=== PATIENT | male | born 1990 | race Caucasian/White ===

== ENCOUNTER 2019-07-25 22:20 | Emergency (ER) | payer MEDICAID, OTHER ==
[~2019-07-25] VITALS: Ht 190 cm; Wt 94.3 kg
[2019-07-25 22:33] VITALS: BP 135/80
--- NOTE | 2019-07-25 22:39 | ED EENT ---
History of Present Illness General Chief Complaint: Ear Problems Stated Complaint: NAUSEA/VOMITTING History of Present Illness Date Seen by Provider: Jul 25, 2019 Time Seen by Provider: 22:37 Initial Comments This patient presents to the emergency department is 29-year-old male complaining of respiratory type symptoms aren't illness type issues. Body aches. Patient states been going on for about 24 hours. Will do medical evaluation treatment is needed. Patient states low-grade fever. A lot of nasal congestion. Right ear pain. Timing/Duration: gradual Prearrival Treatment: over the counter meds Modifying Factors: Worse With Activity, Worse With Albuterol Inhaler, Worse With Albuterol Nebulizer, Worse With Antibiotics, Worse With Coughing, Worse With Lying Down, Worse With Oxygen, Worse With Rest, Worse With Other Associated Symptoms: No denies symptoms, No change in hearing, No cough, No drooling, No ear drainage, No facial pain/swelling, No fever; malaise, nasal congestion/drainage; No poor fluid intake, No poor solids intake, No sinus infection, No sore throat, No tooth pain, No voice change, No other Allergies and Home Medications Allergies Coded Allergies: No Known Drug Allergies (Unverified , 07/25/19) Patient Home Medication List Home Medication List Reviewed: Yes Review of Systems Review of Systems Constitutional: no symptoms reported, see HPI, fever, malaise Eyes: No Symptoms Reported, See HPI Ears: Denies No Symptoms Reported, Denies See HPI, Denies Dizziness; Pain; Denies Tinnitus, Denies Bloody Discharge, Denies Clear Discharge, Denies Purulent Discharge, Denies Serosanguinous Discharge, Denies Previous Injury, Denies Other Nose: denies no symptoms reported, denies see HPI, denies clots; congestion; denies epistaxis, denies pain, denies bloody discharge; clear discharge; denies purulent discharge, denies serosanguinous discharge, denies previous injury, denies other Mouth: denies no symptoms reported; see HPI; denies clots, denies loose teeth, denies pain, denies swelling, denies bloody discharge, denies clear discharge, denies purulent discharge, denies serosanguinous discharge, denies previous injury, denies other Throat: no symptoms reported, see HPI; denies pain, denies swelling, denies discharge, denies neck stiffness, denies hoarse, denies aphonia, denies muffled, denies painful swallowing, denies difficulty with fluids, denies previous injury, denies other Respiratory: No no symptoms reported, No see HPI; cough; No dyspnea on exertion, No hemoptysis, No orthopnea, No phlegm, No short of breath, No stridor, No wheezing, No other Cardiovascular: No no symptoms reported, No see HPI, No chest pain, No edema, No Hx of Intervention, No palpitations, No syncope, No vascular heart diseas, No other Gastrointestinal: No RUQ, No LUQ, No RLQ, No LLQ, No no symptoms reported, No see HPI, No abdominal pain, No constipation, No diarrhea, No dysphagia, No hematemesis, No heartburn, No jaundice, No loss of appetite, No melena, No nausea, No vomiting, No other Musculoskeletal: No no symptoms reported, No see HPI, No back pain, No gout, No joint pain, No joint swelling, No muscle pain, No muscle stiffness, No muscle cramps, No muscle twitching, No muscle weakness, No neck pain, No other Past Hiywmid-Juiasq-Ombnlg Hx Patient Social History Alcohol Use: Denies Use Recreational Drug Use: No Smoking Status: Current Everyday Smoker Type Used: Electronic/Vapor 2nd Hand Smoke Exposure: No Recent Foreign Travel: No Contact w/Someone Who Travel: No Recent Hopitalizations: No Physical Abuse: No Sexual Abuse: No Mistreated: No Fear: No Seasonal Allergies Seasonal Allergies: No Past Medical History Surgeries: Yes Ear Surgery Respiratory: No Cardiac: No Neurological: No Genitourinary: No Gastrointestinal: No Musculoskeletal: No Endocrine: No HEENT: No Cancer: No Psychosocial: No Integumentary: No Blood Disorders: No Physical Exam Vital Signs Vital Signs - First Documented 07/25/19 22:33 Temp 37.5 Pulse 84 Resp 16 B/P (MAP) 135/80 (98) Pulse Ox 100 O2 Delivery Room Air Height, Weight, BMI Height: '" Weight: lbs. oz. kg; BMI Method: General Appearance: WD/WN, no apparent distress, mild distress, moderate distress, severe distress, cachetic Eyes: right eye normal inspection, right eye PERRL, right eye EOMI, right eye abnormal EOM; bilateral eye normal inspection, bilateral eye PERRL, bilateral eye EOMI, bilateral eye abnormal EOM, bilateral eye abnormal pupil, bilateral eye A-V nicking, bilateral eye conjunctival hemorrhage, bilateral eye conjunctival inflammation Ears: bilateral ear auricle normal, bilateral ear canal normal, bilateral ear TM normal Nose: normal inspection; No active bleeding, No discharge, No dried blood, No foreign body, No sinus tenderness, No other Mouth/Throat: normal mouth inspection, pharynx normal, dental tenderness, excessive drooling, foreign body, mandibular swelling; No maxillary swelling, No pharynx swelling, No pharynx tenderness, No tongue swollen, No tonsillar exudate, No tonsillar swelling, No trismus, No uvula swelling, No voice changes, No other Cardiovascular: normal peripheral pulses, regular rate, rhythm, no edema, no gallop, no JVD, no murmur Respiratory: chest non-tender, lungs clear, normal breath sounds, no respiratory distress, no accessory muscle use Gastrointestinal: normal bowel sounds, non tender, soft, no organomegaly, no pulsatile mass, tenderness, spleenomegaly Skin: normal color, warm/dry Progress/Results/Core Measures Results/Orders Micro Results Microbiology 07/25/19 Influenza Types A,B Antigen (JOSE) - Final, Complete My Orders Orders - RUFUS KILLIAN MD Influenza A And B Antigens (07/25/19 22:31) Vital Signs/I&O 07/25/19 22:33 Temp 37.5 Pulse 84 Resp 16 B/P (MAP) 135/80 (98) Pulse Ox 100 O2 Delivery Room Air Departure Impression Primary Impression: Upper respiratory infection Disposition: 01 HOME, SELF-CARE Condition: Stable Departure-Patient Inst. Referrals: NO,LOCAL PHYSICIAN (PCP/Family) Primary Care Physician Patient Instructions: Cough, Runny Nose, and the Common Cold (DC) Add. Discharge Instructions: Encourage by mouth fluids, cool mist me to find the bedroom at night, area without encountering antihistamines as needed. Finish all medications as written. Tylenol Motrin as needed for fever or pain. All discharge instructions reviewed with patient and/or family. Voiced understanding. Scripts Azithromycin (Zithromax) 250 Mg Tablet 250 MG PO UD, #6 TAB TAKE 2 TABLETS TODAY, THEN TAKE 1 TABLET DAILY FOR 4 MORE DAYS Prov: RUFUS KILLIAN MD 07/25/19 RUFUS KILLIAN MD Jul 25, 2019 22:39
[2019-07-25] MEDS ORDERED: AZIT250T PO (23:02)
--- OUTSIDE RECORDS SUMMARY | 2019-07-28 11:12 | XMS REPORT | Continuity of Care Document ---
Author Organization Unknown Address Unknown Phone Unavailable Allergies Active Description Code Type Severity Reaction Onset Reported/Identified Relationship to Patient Clinical Status Yes No Known Drug Allergies [id number] Drug Allergy Unknown N/A 07/25/2019 Medications There is no data. Problems There is no data. Procedures There is no data. Results Test Result Range Influenza virus A and B antigen detectio n - 07/25/19 22:30 FLU RESULT NEGATIVE FOR INFLUENZA A AND B ANTIGENS BY IA NRG Encounters ACCT No. Visit Date/Time Discharge Status Pt. Type Provider Facility Loc./Unit Complaint [id number] 06/16/2019 15:10:00 06/16/2019 23:59: 59 CLS Outpatient JUDITH VERDUGO [facility] [id number] 07/25/2019 22:24:00 020 23:06:00 DIS Emergency MARIA D GUNTER, RUFUS Palma [facility] ER FS NAUSEA/VOMITTING
== END 2019-07-25 23:06 | disposition home or self-care (01) ==
LOC: ER FS 22:24
DX: J06.9 Acute upper respiratory infection, unspecified (principal); F17.290 Nicotine dependence, other tobacco product, uncomplicated
CPT/HCPCS: 87804

== ENCOUNTER 2019-10-04 22:32 | Emergency (ER) | payer MEDICAID ==
[~2019-10-04] VITALS: Ht 190.5 cm; Wt 99.8 kg
[~2019-10-04 22:32] MED LIST: AZIT250T PO
[2019-10-04] MEDS ORDERED: ANTACID SUSP 30 ML UDC (MYLANTA) PO ONE (23:00)
[2019-10-04] MEDS ORDERED: KETOROLAC 30 MG/ML VIAL IVP ONE (23:00)
[2019-10-04] MEDS ORDERED: ACETAMINOPHEN 500 MG TAB (TYLENOL) PO ONE (23:00)
[2019-10-04] MEDS ORDERED: ASPIRIN 325 MG (5 GR) TABLET PO ONE (23:00)
[2019-10-04] MEDS ORDERED: LIDOCAINE 2% VISCOUS 15 ML UDC PO ONE (23:00)
--- NOTE | 2019-10-04 23:05 | ED Chest Pain ---
General Chief Complaint: Chest Pain Stated Complaint: CHEST PAIN,SOA Nursing Triage Note: PT AMBULATE TO ROOM FS01 WITH C/O CHEST PAIN AND SOB STARTING APPROX X1 MONTH AGO. PT STATES PAIN IS WORSE WHEN HE MOVES AND STRETCHES. PT REPORTS PAIN IS INTERMITTANT. PT STATES PAIN IS WORSE WHEN HE WAKES UP. PT REPORTS DIARRHEA AFTER EATING X1 MONTH. Nursing Sepsis Screen: No Definite Risk History of Present Illness Date Seen by Provider: October 04, 2019 Time Seen by Provider: 22:50 Initial Comments The patient is a 29-year-old male smoker who presents for evaluation of 1 month of intermittent sharp focal midsternal pleuritic chest discomfort. Discomfort does not radiate. It is worse with deep breathing as well as with movement and stretching of the torso. It is nonexertional. It seems to come on when the patient wakes up from sleep and get better over the course of his work day. He states he has this pain every few days at random, and has had it for the last month intermittently. Severity about 8 out of 10 at present; patient states that he woke up about 4 hours ago with the discomfort and states that it did not get better on its own as it typically has and so he decided to come in for evaluation. Associated diarrhea; patient states that over the last month, the interval during which he has had this chest discomfort, he has had a loose bowel movement most every time he eats. About 3 episodes per day. No associated fevers, vomiting, hematemesis, hematochezia, melena, upper respiratory congestion/rhinorrhea, cough, shortness of breath, dyspnea with exertion, diaphoresis, flank pain, back pain, abdominal pain of any kind, dysuria or hematuria, recent unusual foods, unusual travel, sick contacts with similar symptoms, recent antibiotic use. Patient denies recent immobilization, hemoptysis, known cancer history, recent surgery, personal or family history of venous thromboembolic disease, estrogen or steroid use. Patient is alert and pleasantly and appropriately interactive and in no acute distress upon initial assessment here in the emergency department. Vital signs are generally appropriate here. Allergies and Home Medications Allergies Coded Allergies: No Known Drug Allergies (Unverified , 07/25/19) Home Medications Azithromycin 250 Mg Tablet, 250 MG PO UD TAKE 2 TABLETS TODAY, THEN TAKE 1 TABLET DAILY FOR 4 MORE DAYS Prescribed by: RUFUS KILLIAN on 3/82301 Patient Home Medication List Home Medication List Reviewed: Yes Review of Systems Review of Systems Constitutional: no symptoms reported All Other Systems Reviewed Negative Unless Noted: Yes (Negative excepted noted.) Past Icrrmck-Bqnvro-Igyujm Hx Past Med/Social Hx: Reviewed Nursing Past Med/Soc Hx Patient Social History Alcohol Use: Occasionally Uses Alcohol Beverage of Choice: Beer Recreational Drug Use: No Smoking Status: Current Everyday Smoker Type Used: Cigars, Electronic/Vapor 2nd Hand Smoke Exposure: No Recent Foreign Travel: No Contact w/Someone Who Travel: No Recent Infectious Disease Expo: No Recent Hopitalizations: No Physical Abuse: No Sexual Abuse: No Mistreated: No Fear: No Seasonal Allergies Seasonal Allergies: No Past Medical History Surgeries: Yes Ear Surgery Respiratory: No Cardiac: No Neurological: No Genitourinary: No Gastrointestinal: No Musculoskeletal: No Endocrine: No HEENT: No Cancer: No Psychosocial: No Integumentary: No Blood Disorders: No Family Medical History Reviewed Nursing Family Hx Physical Exam Vital Signs Vital Signs - First Documented 10/04/19 22:39 Temp 37.1 Pulse 81 Resp 18 B/P (MAP) 146/84 (104) O2 Delivery Room Air Capillary Refill : Less Than 3 Seconds Height, Weight, BMI Height: '" Weight: lbs. oz. kg; 27.00 BMI Method: General Appearance: No Apparent Distress Other comments This is a younger male appearing nontoxic and in no acute distress. Head is normocephalic and atraumatic. Neck is supple and nontender. Oropharynx is moist. Lungs are clear to auscultation at all stations. There is normal S1 and S2 without rubs or gallops and capillary refill is appropriate, less than 2 seconds globally. There are no murmurs appreciated. Abdomen is soft, nontender and nondistended without pulsatile mass. Skin is warm and dry without cyanosis, clubbing or any peripheral edema. Psychiatrically, the patient demonstrates appropriate mood and affect and is alert. From a musculoskeletal standpoint, evaluation of the bilateral upper and lower extremities is unremarkable for any evidence of edema. 2+ pulses and capillary refill less than 2 seconds are noted to all 4 extremities and there is no calf tenderness or swelling noted bilaterally. Progress/Results/Core Measures Results/Orders Lab Results Laboratory Tests Test 10/04/19 22:55 Range/Units White Blood Count 7.9 4.3-11.0 10^3/uL Red Blood Count 4.75 4.35-5.85 10^6/uL Hemoglobin 14.3 13.3-17.7 G/DL Hematocrit 41 40-54 % Mean Corpuscular Volume 87 80-99 FL Mean Corpuscular Hemoglobin 30 25-34 PG Mean Corpuscular Hemoglobin Concent 35 32-36 G/DL Red Cell Distribution Width 12.8 10.0-14.5 % Platelet Count 308 130-400 10^3/uL Mean Platelet Volume 9.5 7.4-10.4 FL Neutrophils (%) (Auto) 57 42-75 % Lymphocytes (%) (Auto) 28 12-44 % Monocytes (%) (Auto) 9 0-12 % Eosinophils (%) (Auto) 5 0-10 % Basophils (%) (Auto) 0 0-10 % Neutrophils # (Auto) 4.5 1.8-7.8 X 10^3 Lymphocytes # (Auto) 2.2 1.0-4.0 X 10^3 Monocytes # (Auto) 0.7 0.0-1.0 X 10^3 Eosinophils # (Auto) 0.4 H 0.0-0.3 10^3/uL Basophils # (Auto) 0.0 0.0-0.1 10^3/uL Prothrombin Time 13.6 12.2-14.7 SEC INR Comment 1.0 0.8-1.4 Activated Partial Thromboplast Time 31 24-35 SEC D-Dimer 0.25 0.00-0.49 UG/ML Sodium Level 142 135-145 MMOL/L Potassium Level 3.9 3.6-5.0 MMOL/L Chloride Level 105 98-107 MMOL/L Carbon Dioxide Level 26 21-32 MMOL/L Anion Gap 11 5-14 MMOL/L Blood Urea Nitrogen 8 7-18 MG/DL Creatinine 1.00 0.60-1.30 MG/DL Estimat Glomerular Filtration Rate > 60 BUN/Creatinine Ratio 8 Glucose Level 145 H 70-105 MG/DL Calcium Level 9.4 8.5-10.1 MG/DL Corrected Calcium 9.2 8.5-10.1 MG/DL Total Bilirubin 0.3 0.1-1.0 MG/DL Aspartate Amino Transf (AST/SGOT) 23 5-34 U/L Alanine Aminotransferase (ALT/SGPT) 29 0-55 U/L Alkaline Phosphatase 72 40-136 U/L Troponin I < 0.30 <0.30 NG/ML Pro-B-Type Natriuretic Peptide 8.4 <75.0 PG/ML Total Protein 7.4 6.4-8.2 GM/DL Albumin 4.2 3.2-4.5 GM/DL My Orders Orders - LISANDRA ALVARADO MD Cbc With Automated Diff (10/04/19 22:54) Comprehensive Metabolic Panel (10/04/19 22:54) Troponin I Fs (10/04/19 22:54) Ekg Tracing (10/04/19 22:54) Chest Pa/Lat (2 View) (10/04/19:54) Protime With Inr (10/04/19:54) Partial Thromboplastin Time (10/04/19 22:54) Probnp Fs (10/04/19:54) Fibrin Degradation Products (10/04/19 22:54) Aspirin Tablet (Aspirin Tablet) (10/04/19 23:00) Acetaminophen Tablet (Tylenol Tablet) (10/04/19 23:00) Ketorolac Injection (Toradol Injection) (10/04/19 23:00) Lidocaine 2% Viscous 15 Ml (Xylocaine Vi (10/04/19 23:00) Antacid Suspension (Mylanta Suspension (10/04/19 23:00) Ed Iv/Invasive Line Start (10/04/19 22:54) Famotidine Tablet (Pepcid Tablet) (10/04/19 23:15) Medications Given in ED Current Medications Medications Dose Ordered Sig/Kelly Route Start Time Stop Time Status Last Admin Dose Admin Acetaminophen 1,000 mg ONCE ONCE PO 10/04/19 23:00 10/04/19 23:01 DC 10/04/19 23:08 1,000 MG Al Hydrox/Mg Hydrox/Simethicone 30 ml ONCE ONCE PO 10/04/19 23:00 10/04/19 23:01 DC 10/04/19 23:08 30 ML Aspirin 325 mg ONCE ONCE PO 10/04/19 23:00 10/04/19 23:01 DC 10/04/19 23:08 325 MG Famotidine 20 mg ONCE ONCE PO 10/04/19 23:15 10/04/19 23:16 DC 10/04/19 23:15 20 MG Ketorolac Tromethamine 30 mg ONCE ONCE IVP 10/04/19 23:00 10/04/19 23:01 DC 10/04/19 23:08 30 MG Lidocaine HCl 15 ml ONCE ONCE PO 10/04/19 23:00 10/04/19 23:01 DC 10/04/19 23:08 15 ML Vital Signs/I&O 10/04/19 10/04/19 22:39 22:51 Temp 37.1 Pulse 81 Resp 18 B/P (MAP) 146/84 (104) O2 Delivery Room Air Room Air Blood Pressure Mean: 104 Progress Progress Note : Time: 23:08 Progress Note 29-year-old male who presents with intermittent pleuritic chest discomfort times one month midsternally in association with mild watery diarrhea. The present episode has been ongoing for >4 hours. Vital signs and clinical examination are reassuring. HEART score 2, low risk for MACE. Wells low risk for PE. We will check labs and EKG and chest x-ray and will give medication for discomfort as per flowsheet as well as an aspirin and will then reevaluate. If workup is reassuring, anticipate discharge home with referral for close follow-up with [facility] for primary care and to cardiology for close follow-up of his 1 month of atypical chest discomfort. He understands and agrees with this plan of care. 2350: Workup is as noted, unremarkable and reassuring. Michael feels a great deal better on reassessment after medication here in the emergency department. Chest pain is much improved. He does have mildly elevated blood glucose without other findings of concern by laboratory evaluation. Unclear chronicity on this but will certainly need to be followed up with the primary care physician. Will refer patient to [facility] for close follow-up and I have instructed him to call tomorrow for a close follow-up appointment. We will also refer him to the cardiology clinic for further evaluation of his 1 month of atypical chest discomfort, though favor other etiologies for his symptoms at this time. We'll prescribe a course of anti-inflammatory as well as antiacid medication and will have the patient follow up closely as noted above. He understands that if he feels worse instead of better or develops other new symptoms of concern that he will need to return to the emergency department immediately for reevaluation. All questions are answered. EKG : Comment Sinus rhythm, rate 74, no acute ST elevation or depression, right bundle branch block, OR 149, QRS 123, QTC 467, EP interpretation. Nonischemic tracing. Diagnostic Imaging Plain Films/CT/US/NM/MRI: chest Comments No acute cardiopulmonary process, EP interp Counseling-Asymptomatic: 3-10 minutes Departure Impression Primary Impression: Other chest pain Disposition: HOME, SELF-CARE Condition: Improved Departure-Patient Inst. Referrals: MAYITO JC MD NO,LOCAL PHYSICIAN (PCP) Primary Care Physician CHANTELLE GEORGE MD Patient Instructions: Chest Pain Add. Discharge Instructions: Please follow-up as discussed by calling tomorrow for an initial appointment with Dr. George, one of our [facility] primary care physicians. Please let the production scheduler know that you were in the emergency department last evening and that the emergency physician would like to get you followed up very closely, ideally within the next 2-4 days. Please also call Dr. Jc's office in [place] for a cardiology appointment; let the production scheduler know that you need an ER followup appointment for chest pain, ideally within the next 72 hours. Numbers have been provided for both clinics. Please call in the morning. Take the medication as prescribed for your symptoms. Return to the emergency department right away with recurrent or worsening symptoms or with any other new symptoms of concern. Your blood sugar was a little elevated today here in the ER. Make sure to have that rechecked by your primary doctor at your upcoming appointment. Scripts Famotidine (Pepcid) 20 Mg Tablet 20 MG PO BID for 30 Days, #60 TAB Prov: LISANDRA ALVARADO MD 10/05/19 Ibuprofen (Ibuprofen) 800 Mg Tablet 800 MG PO Q8H PRN for PAIN, #30 TAB 0 Refills Prov: LISANDRA ALVARADO MD 10/05/19 Work/School Note: Work Release Form Date Seen in the Emergency Department: October 05, 2019 Return to Work: October 06, 2019 Restrictions: No Restrictions LISANDRA ALVARADO MD October 04, 2019 23:05
[2019-10-04 23:09] LABS: HEMATOCRIT 41 % (40-54); HEMOGLOBIN 14.3 G/DL (13.3-17.7); MEAN CORPUSCULAR HEMOGLOBIN 30 PG (25-34); MEAN CORPUSCULAR VOLUME 87 FL (80-99); WHITE BLOOD COUNT 7.9 10^3/uL (4.3-11.0)
[2019-10-04 23:10] LABS: BASOPHILS % (AUTO) 0 % (0-10); EOSINOPHILS # (AUTO) 0.4 10^3/uL (0.0-0.3); EOSINOPHILS % (AUTO) 5 % (0-10); LYMPHOCYTES # (AUTO) 2.2 X 10^3 (1.0-4.0); LYMPHOCYTES % (AUTO) 28 % (12-44); MEAN CORPUSCULAR HGB CONC 35 G/DL (32-36); MEAN PLATELET VOLUME 9.5 FL (7.4-10.4); MONOCYTES # (AUTO) 0.7 X 10^3 (0.0-1.0); MONOCYTES % (AUTO) 9 % (0-12); NEUTROPHILS # (AUTO) 4.5 X 10^3 (1.8-7.8); NEUTROPHILS % (AUTO) 57 % (42-75); PLATELET COUNT 308 10^3/uL (130-400); RED CELL DISTRIBUTION WIDTH 12.8 % (10.0-14.5)
--- OUTSIDE RECORDS SUMMARY | 2019-10-04 23:10 | XMS REPORT | Continuity of Care Document ---
Author Organization Unknown Address Unknown Phone Unavailable Allergies Active Description Code Type Severity Reaction Onset Reported/Identified Relationship to Patient Clinical Status Yes No Known Drug Allergies [id number] Drug Allergy Unknown N/A 07/25/2019 Medications There is no data. Problems There is no data. Procedures There is no data. Results Test Result Range Influenza virus A and B antigen detectio n - 07/25/19 22:30 FLU RESULT NEGATIVE FOR INFLUENZA A AND B ANTIGENS BY IA NRG Encounters ACCT No. Visit Date/Time Discharge Status Pt. Type Provider Facility Loc./Unit Complaint [id number] 08/10/2019 07:50:00 08/10/2019 23:59: 59 CLS Outpatient JUDITH VERDUGO L[facility] [id number] 07/25/2019 22:24:00 020 23:06:00 DIS Emergency RUFUS KILLIAN MD Via [facility] ER FS NAUSEA/VOMITTING [id number] 10/04/2019 22:33:[address] Emergency LISANDRA ALVARADO MD Via [facility] ER FS CHEST PAIN,SOA
[2019-10-04] MEDS ORDERED: FAMOTIDINE 20 MG (PEPCID) TABLET PO ONE (23:15)
[2019-10-04 23:29] LABS: FIBRIN DEGRADATION PRODUCTS 0.25 UG/ML (0.00-0.49); PROTHROMBIN TIME PATIENT 13.6 SEC (12.2-14.7)
[2019-10-04 23:39] LABS: ALANINE AMINOTRANSFERASE 29 U/L (0-55); ALBUMIN 4.2 GM/DL (3.2-4.5); ALKALINE PHOSPHATASE 72 U/L (40-136); BILIRUBIN,TOTAL 0.3 MG/DL (0.1-1.0); BUN/CREATININE RATIO 8; CALCIUM 9.4 MG/DL (8.5-10.1); CARBON DIOXIDE 26 MMOL/L (21-32); CHLORIDE 105 MMOL/L (98-107); GFR ESTIMATED > 60; GLUCOSE 145 MG/DL (70-105); POTASSIUM 3.9 MMOL/L (3.6-5.0); SODIUM 142 MMOL/L (135-145); TOTAL PROTEIN 7.4 GM/DL (6.4-8.2)
[2019-10-05] MEDS ORDERED: IBUP-1780 PO (00:01)
[2019-10-05] MEDS ORDERED: FAMO-119 PO (00:01)
[2019-10-05 00:13] VITALS: BP 137/77
--- NOTE | 2019-10-05 05:58 | Diagnostic Imaging Report ---
EXAMINATION: Chest 2 view INDICATION: Chest pain and shortness of breath. COMPARISON: None available. FINDINGS: The lung volumes are normal. A small amount of opacities are seen in the left lung base. No focal consolidations. No large pleural effusion or pneumothorax is seen. The cardiomediastinal silhouette is normal in size and contour. No acute osseous abnormality is seen. IMPRESSION: 1. Small amount of patchy opacities in the left lung base, favored to represent atelectasis. No focal consolidation. Dictated by: Dictated on workstation # [id number]
[2019-10-06] MEDS ORDERED: BENZ100C18 PO (22:43)
== END 2019-10-05 00:13 | disposition home or self-care (01) ==
LOC: EDUNIT# 22:32 → ER FS 22:33
DX: R07.89 Other chest pain (principal); F17.290 Nicotine dependence, other tobacco product, uncomplicated
CPT/HCPCS: 36415; 71046; 80053; 83880; 84484; 85025; 85379; 85610; 85730; 93005; 96374

== ENCOUNTER 2019-10-06 22:21 | Emergency (ER) | payer MEDICAID ==
[~2019-10-06] VITALS: Ht 190.5 cm; Wt 104.5 kg
[~2019-10-06 22:21] MED LIST changes: +FAMO-119 PO; +IBUP-1780 PO
--- OUTSIDE RECORDS SUMMARY | 2019-10-06 22:27 | XMS REPORT | Continuity of Care Document ---
Author Organization Unknown Address Unknown Phone Unavailable Allergies Active Description Code Type Severity Reaction Onset Reported/Identified Relationship to Patient Clinical Status Yes No Known Drug Allergies [id number] Drug Allergy Unknown N/A 07/25/2019 Medications There is no data. Problems Date Dx Coded Attending Type Code Diagnosis Diagnosed By 07/25/2019 MARIA D GUNTER, RUFUS Palma Ot F17.290 NICOTINE DEPENDENCE, OTHER TOBACCO PRODU 07/25/2019 MARIA D GUNTER, RUFUS Palma Ot J06.9 ACUTE UPPER RESPIRATORY INFECTION, UNSPE 07/25/2019 RUFUS KILLIAN MD Ot R11.2 NAUSEA WITH VOMITING, UNSPECIFIED Procedures There is no data. Results Test Result Range Influenza virus A and B antigen detectio n - 07/25/19 22:30 FLU RESULT NEGATIVE FOR INFLUENZA A AND B ANTIGENS BY [facility] Complete blood count (CBC) with automate d white blood cell (WBC) differential - 10/04/19 22:55 Blood leukocytes automated count (number/volume) 7.9 10*3/uL 4.3-11.0 Blood erythrocytes automated count (number/volume) 4.75 10*6/uL 4.35-5.85 Venous blood hemoglobin measurement (mass/volume) 14.3 g/dL 13.3-17.7 Blood hematocrit (volume fraction) 41 % 40-54 Automated erythrocyte mean corpuscular volume 87 [ foz_us] 80-99 Automated erythrocyte mean corpuscular h emoglobin (mass per erythrocyte) 30 pg 25-34 Automated erythrocyte mean corpuscular h emoglobin concentration measurement (mass/volume) 35 g/dL 32-36 Automated erythrocyte distribution width ratio 12. 8 % 10.0- 14.5 Automated blood platelet count (count/volume) 308 10*3/uL 130-400 Automated blood platelet mean volume measurement 9.5 [foz_us] 7.4-10.4 Automated blood neutrophils/100 leukocytes 57 % 42-75 Automated blood lymphocytes/100 leukocytes 28 % 12-44 Blood monocytes/100 leukocytes 9 % 0-12 Automated blood eosinophils/100 leukocytes 5 % 0-10 Automated blood basophils/100 leukocytes 0 % 0-10 Blood neutrophils automated count (number/volume) 4.5 10*3 1.8-7.8 Blood lymphocytes automated count (number/volume) 2.2 10*3 1.0-4.0 Blood monocytes automated count (number/volume) 0. 7 10*3 0.0-1.0 Automated eosinophil count 0.4 10*3/uL 0 .0-0.3 Automated blood basophil count (count/volume) 0.0 10*3/uL 0.0-0.1 PT panel in platelet poor plasma by coag ulation assay - 10/04/19 22:55 Prothrombin time (PT) in platelet poor plasma by coagu lation assay 13.6 s 12.2-14.7 INR in platelet poor plasma or blood by coagulation as say 1.0 0.8-1.4 Activated partial thromboplastin time (a PTT) in platelet poor plasma bycoagulation assay - 10/04/19 22:55 Activated partial thromboplastin time (a PTT) in platelet poor plasma bycoagulation assay 31 s 24-35 Fibrin D-dimer FEU measurement in platel et poor plasma (mass/volume) - 10/04/19 22:55 Fibrin D-dimer FEU measurement in platelet poor plasma (mass/volume) 0.25 ug/mL 0.00-0.49 Comprehensive metabolic panel - 10/04/19 22:55 Serum or plasma sodium measurement (moles/volume) 142 mmol/L 135-145 Serum or plasma potassium measurement (moles/volume) 3.9 mmol/L 3.6-5.0 Serum or plasma chloride measurement (moles/volume) 105 mmol/L 98-107 Carbon dioxide 26 mmol/L 21-32 Serum or plasma anion gap determination (moles/volume) 11 mmol/L 5-14 Serum or plasma urea nitrogen measurement (mass/volume ) 8 mg/dL 7-18 Serum or plasma creatinine measurement (mass/volume) 1.00 mg/dL 0.60-1.30 Serum or plasma urea nitrogen/creatinine mass ratio 8 NRG Serum or plasma creatinine measurement w ith calculation of estimated glomerular filtration rate > NRG Serum or plasma glucose measurement (mass/volume) 145 mg/dL 70-105 Serum or plasma calcium measurement (mass/volume) 9.4 mg/dL 8.5-10.1 Serum or plasma total bilirubin measurement (mass/volu me) 0.3 mg/dL 0.1-1.0 Serum or plasma alkaline phosphatase jovanny surement (enzymatic activity/volume) 72 U/L 40-136 Serum or plasma aspartate aminotransfera se measurement (enzymatic activity/volume) 23 U/L 5-34 Serum or plasma alanine aminotransferase measurement (enzymatic activity/volume) 29 U/L 0-55 Serum or plasma protein measurement (mass/volume) 7.4 g/dL 6.4-8.2 Serum or plasma albumin measurement (mass/volume) 4.2 g/dL 3.2-4.5 CALCIUM CORRECTED 9.2 mg/dL 8.5-10.1 TROPONIN I FS - 10/04/19 22:55 TROPONIN I FS < 0.30 <0.30 PROBNP FS - 10/04/19 22:55 PROBNP FS 8.4 pg/mL <75.0 Encounters ACCT No. Visit Date/Time Discharge Status Pt. Type Provider Facility Loc./Unit Complaint [id number] 08/10/2019 07:50:00 08/10/2019 23:59: 59 CLS Outpatient LUC[facility]SDALE[facility] [id number] 10/04/2019 22:33:00 020 00:13:00 DIS Emergency LISANDRA ALVARADO MD [facility] ER FS CHEST PAIN,SOA [id number] 07/25/2019 22:24:00 020 23:06:00 DIS Emergency RUFUS KILLIAN MD [facility] ER FS NAUSEA/VOMITTING [id number] 10/06/2019 22:22:[address] Emergency RUFUS KILLIAN MD [facility] ER FS CHEST PAIN
[2019-10-06] MEDS ORDERED: BENZONATATE 100 MG (TESSALON) CAPSULE PO ONE (22:39)
--- NOTE | 2019-10-06 22:40 | NUR ---
SINUS RHYTHM ON THE MONITOR
[2019-10-06] MEDS ORDERED: BENZ100C18 PO (22:43)
--- NOTE | 2019-10-06 22:44 | ED Cardiac General ---
History of Present Illness General Chief Complaint: Chest Pain Stated Complaint: CHEST PAIN Source: patient, RN/MD, RN notes reviewed, old records Exam Limitations: no limitations History of Present Illness Date Seen by Provider: October 06, 2019 Time Seen by Provider: 22:25 Initial Comments This patient is a 29-year-old male presents to the emergency department complaining of chest tightness. And burning. Patient was seen 2 days ago in the emergency department for same and a negative evaluation for any cardiac standpoint was advised to follow with cardiology. Patient did get an appointment for 2 weeks now. Patient states still having the burning in his chest. On exam patient is clear breathing however the patient didn't describes that he is continual vaping and has been long-time smoking. States that he's been vaping today and had increasing tightness in his chest. Timing/Duration: 5-6 days Severity: mild Location: other Prior CP/Workup: non-cardiac Modifying Factors: worse with breathing Associated Systoms: Denies Symptoms Allergies and Home Medications Allergies Coded Allergies: No Known Drug Allergies (Unverified , 07/25/19) Home Medications Azithromycin 250 Mg Tablet, 250 MG PO UD TAKE 2 TABLETS TODAY, THEN TAKE 1 TABLET DAILY FOR 4 MORE DAYS Prescribed by: RUFUS KILLIAN on 07/25/19 230 Famotidine 20 Mg Tablet, 20 MG PO BID Prescribed by: LISANDRA ALVARADO on 10/05/19 0001 Ibuprofen 800 Mg Tablet, 800 MG PO Q8H PRN for PAIN Prescribed by: LISANDRA ALVARADO on 10/05/19 0001 Patient Home Medication List Home Medication List Reviewed: Yes Review of Systems Review of Systems Constitutional: no symptoms reported EENTM: No No Symptoms Reported, No See HPI, No Blurred Vision, No Double Vision, No Eye Pain, No Eye Tearing, No Ear Drainage, No Ear Pain, No Mouth Pain, No Mouth Swelling, No Nose Congestion, No Nose Pain, No Throat Pain, No Throat Swelling, No Other Respiratory: Denies No Symptoms Reported; See HPI; Denies Cough, Denies Orthopnea, Denies Shortness of Air, Denies SOA With Exertion, Denies SOA at Rest, Denies Stridor, Denies Wheezing, Denies Other Cardiovascular: Denies No Symptoms Reported; See HPI; Denies Chest Pain, Denies Edema, Denies Irregular Heart Rate, Denies Lightheadedness, Denies Palpitations, Denies Syncope, Denies Other Gastrointestinal: Denies No Symptoms Reported, Denies See HPI, Denies Abdomen Distended, Denies Abdominal Pain, Denies Blood Streaked Stools, Denies Constipated, Denies Diarrhea, Denies Difficulty Swallowing, Denies Nausea, Denies Poor Appetite, Denies Poor Fluid Intake, Denies Rectal Bleeding, Denies Vomiting, Denies Other Genitourinary: Denies No Symptoms Reported, Denies See HPI, Denies Burning, Denies Discharge, Denies Drainage, Denies Frequency, Denies Flank Pain, Denies Hematuria, Denies Incontinence, Denies Pain, Denies Urgency, Denies Other Musculoskeletal: No no symptoms reported, No see HPI, No back pain, No gout, No joint pain, No joint swelling, No muscle pain, No muscle stiffness, No muscle cramps, No muscle twitching, No muscle weakness, No neck pain, No other Skin: No no symptoms reported, No see HPI, No change in color, No change in hair/nails, No dryness, No hx of skin cancer, No lesions, No lumps, No pruritus, No rash, No other All Other Systems Reviewed Negative Unless Noted: Yes Past Wbixtfi-Lrpjbv-Maeakh Hx Patient Social History Alcohol Beverage of Choice: Beer Type Used: Cigars, Electronic/Vapor 2nd Hand Smoke Exposure: No Recent Foreign Travel: No Contact w/Someone Who Travel: No Recent Hopitalizations: No Seasonal Allergies Seasonal Allergies: No Past Medical History Surgeries: Yes Ear Surgery Respiratory: No Cardiac: No Neurological: No Genitourinary: No Gastrointestinal: No Musculoskeletal: No Endocrine: No HEENT: No Cancer: No Psychosocial: No Integumentary: No Blood Disorders: No Physical Exam Vital Signs Capillary Refill : Height, Weight, BMI Height: '" Weight: lbs. oz. kg; 27.00 BMI Method: General Appearance: No Apparent Distress, WD/WN HEENT: PERRL/EOMI, TMs Normal, Normal ENT Inspection, Pharynx Normal Neck: Full Range of Motion, Normal Inspection, Non Tender Respiratory: Chest Non Tender, Lungs Clear, Normal Breath Sounds, No Accessory Muscle Use, No Respiratory Distress Cardiovascular: Regular Rate, Rhythm, No Edema, No Gallop, No JVD, No Murmur, Normal Peripheral Pulses Skin: Normal Color, Warm/Dry Progress/Results/Core Measures Progress Progress Note : Time: 22:40 Progress Note Negative evaluation in the emergency department. Negative EKG. Reviewed old records negative for any cardiac evaluation. Patient is a lifelong smoker and now is using vaping chemicals. Patient states he was doing this today and causes an increased tightness in the chest and burning. Patient describes pleurisy. Discussed at length with patient to stop smoking and using these type products. Patient is to add coolmist humidifier. Continue with albuterol puff inhaler that he is using at home. We will write the patient prescription for Tessalon Perles. Patient is follow-up with primary care physician in 2-3 days. Initial ECG Impression Date: October 06, 2019 Initial ECG Impression Time: 22:41 Initial ECG Rate: 65 Initial ECG Rhythm: Normal Sinus Initial ECG Intervals: Normal Initial ECG Intervals Questionable right bundle-branch block and nonspecific EKG changes Initial ECG Impression: Nonspecific Changes Departure Impression Primary Impression: Pleurisy Additional Impression: Smoker Disposition: 01 HOME, SELF-CARE Condition: Stable Departure-Patient Inst. Referrals: NO,LOCAL PHYSICIAN (PCP/Family) Primary Care Physician Patient Instructions: Pleuritic Chest Pain (DC), Quitting Smoking Add. Discharge Instructions: Discussed at length with patient to stop smoking and using these type products. Patient is to add coolmist humidifier. Continue with albuterol puff inhaler that he is using at home. We will write the patient prescription for Tessalon Perles. Patient is follow-up with primary care physician in 2-3 days. All discharge instructions reviewed with patient and/or family. Voiced understanding. Scripts Benzonatate (TESSALON PERLES) 100 Mg Capsule 100 MG PO TID for 10 Days, #30 CAP 0 Refills Prov: RUFUS KILLIAN MD 10/06/19 RUFUS KILLIAN MD October 06, 2019 22:44
[2019-10-06] MEDS: BENZONATATE 100 MG (TESSALON) CAPSULE PO SCH ×2 (22:47→22:49)
[2019-10-06 22:52] VITALS: BP 133/76
--- NOTE | 2019-10-07 07:17 | Diagnostic Imaging Report ---
CHEST 1 VIEW AP/PA ONLY Indication: Chest pain. Comparison: 10/04/2019 Findings: No focal airspace disease in the visualized lungs. Please note that the posterior lower lobes are poorly evaluated by portable radiography. No pleural effusion or pneumothorax. Normal cardiomediastinal silhouette. Impression: 1. No acute cardiopulmonary process by portable radiography. Dictated by: Dictated on workstation # [id number]
== END 2019-10-06 22:54 | disposition home or self-care (01) ==
LOC: EDUNIT# 22:21 → ER FS 22:22
DX: R09.1 Pleurisy (principal); F17.290 Nicotine dependence, other tobacco product, uncomplicated
CPT/HCPCS: 71045; 93005

== ENCOUNTER → 2019-10-13 | Outpatient (CLI) | payer MEDICAID ==
[~2019-10-13] MED LIST changes: +BENZ100C18 PO
== END ==
LOC: CARD 11:33
PROVIDERS: ATTEND Internal Medicine Cardiovascular Disease
DX: I07.1 Rheumatic tricuspid insufficiency (principal); I10 Essential (primary) hypertension
CPT/HCPCS: 93306; 93351

== ENCOUNTER 2020-02-23 23:07 | Emergency (ER) | payer MEDICAID ==
[~2020-02-23] VITALS: Ht 190.5 cm; Wt 102.6 kg
--- NOTE | 2020-02-23 23:23 | ED GI ---
General Chief Complaint: Abdominal/GI Problems Stated Complaint: N/V History of Present Illness Date Seen by Provider: Feb 23, 2020 Time Seen by Provider: 23:23 Initial Comments 29-year-old male presents with some nausea, vomiting, diarrhea. Reports it started about a day and a half ago. He also has what what feels like something in the back of his throat for about 4-5 days and a runny nose. Patient reports he feels like he has a clear throat a lot. Patient denies any cough, no fevers or chills. No abdominal pain. No difficulty swallowing. No other systemic complaints. Allergies and Home Medications Allergies Coded Allergies: No Known Drug Allergies (Unverified , 07/25/19) Home Medications Azithromycin 250 Mg Tablet, 250 MG PO UD TAKE 2 TABLETS TODAY, THEN TAKE 1 TABLET DAILY FOR 4 MORE DAYS Prescribed by: RUFUS KILLIAN on 07/25/19 230 Benzonatate 100 Mg Capsule, 100 MG PO TID Prescribed by: RUFUS KILLIAN on 10/06/19 2243 Famotidine 20 Mg Tablet, 20 MG PO BID Prescribed by: LISANDRA ALVARADO on 10/05/19 0001 Ibuprofen 800 Mg Tablet, 800 MG PO Q8H PRN for PAIN Prescribed by: LISANDRA ALVARADO on 10/05/19 0001 Patient Home Medication List Home Medication List Reviewed: Yes Review of Systems Review of Systems Constitutional: No chills, No dizziness, No fever, No malaise EENTM: See HPI Respiratory: Denies Cough, Denies Shortness of Air Cardiovascular: Denies Chest Pain, Denies Irregular Heart Rate Gastrointestinal: Denies Abdominal Pain; Diarrhea, Nausea, Vomiting Genitourinary: No Symptoms Reported Musculoskeletal: no symptoms reported Skin: no symptoms reported Psychiatric/Neurological: No Symptoms Reported Endocrine: No Symptoms Reported Past Sfojgsi-Bawmxz-Nairhh Hx Past Med/Social Hx: Reviewed Nursing Past Med/Soc Hx Patient Social History Alcohol Beverage of Choice: Beer Type Used: Cigars, Electronic/Vapor 2nd Hand Smoke Exposure: No Recent Foreign Travel: No Contact w/Someone Who Travel: No Recent Hopitalizations: Yes (WAS SEEN IN THE ER ON FRIDAY FOR CP) Seasonal Allergies Seasonal Allergies: No Past Medical History Surgeries: Yes Ear Surgery Respiratory: No Cardiac: No Neurological: No Genitourinary: No Gastrointestinal: No Musculoskeletal: No Endocrine: No HEENT: No Cancer: No Psychosocial: No Integumentary: No Blood Disorders: No Physical Exam Vital Signs Vital Signs - First Documented 02/23/20 23:10 Temp 36.7 Pulse 84 Resp 16 B/P (MAP) 146/80 (102) Pulse Ox 98 O2 Delivery Room Air Capillary Refill : Height/Weight/BMI Height: '" Weight: lbs. oz. 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 Patient was offered further evaluation such as x-ray, labs, IV fluids. At this time he wants to just try Zofran. He will return if his symptoms are not improving or rectal days or if he gets a lot worse. Departure Impression Primary Impression: Viral gastroenteritis Additional Impression: Rhinitis Qualified Codes: J31.0 - Chronic rhinitis Disposition: 01 HOME, SELF-CARE Condition: Stable Departure-Patient Inst. Referrals: NO,LOCAL PHYSICIAN (PCP/Family) Primary Care Physician Patient Instructions: Cough, Runny Nose, and the Common Cold (DC), Seasonal Allergies (DC), Viral Gastroenteritis, Adult (DC) Add. Discharge Instructions: Flonase or other similar medication for your rhinitis Famotidine twice daily as directed on package All discharge instructions reviewed with patient and/or family. Voiced understanding. Scripts Ondansetron (Ondansetron Odt) 4 Mg Tab.rapdis 4 MG PO Q6H PRN for NAUSEA/VOMITING, #20 TAB 0 Refills Prov: WILLARD TILLEY DO 02/23/20 WILLARD TILLEY DO Feb 23, 2020 23:23
[2020-02-23] MEDS ORDERED: ONDANSETRON 4 MG (ZOFRAN) ORAL DISSOLVE TAB PO STA (23:30)
[2020-02-23] MEDS ORDERED: ONDA4TAB11 PO (23:39)
[2020-02-23 23:45] VITALS: BP 146/80
== END 2020-02-23 23:47 | disposition home or self-care (01) ==
LOC: EDUNIT# 23:07 → ER FS 23:10
DX: A08.4 Viral intestinal infection, unspecified (principal); J31.0 Chronic rhinitis
CPT/HCPCS: 99283

== ENCOUNTER 2020-06-05 17:26 | Emergency (ER) | payer MEDICAID ==
[~2020-06-05] VITALS: Ht 190.5 cm; Wt 104.1 kg
[~2020-06-05 17:26] MED LIST changes: +ONDA4TAB11 PO
[2020-06-05] MEDS ORDERED: NS IV 1000 ML 1,000 ML IV STA (17:41)
[2020-06-05] MEDS ORDERED: PANTOPRAZOLE 40 MG (PROTONIX) VIAL IV STA (17:41)
[2020-06-05] MEDS ORDERED: DICYCLOMINE 10 MG/ML (BENTYL) 2 ML AMP IM STA (17:41)
[2020-06-05] MEDS ORDERED: ONDANSETRON 4 MG/2 ML (SDV) Z0FRAN IVP STA (17:41)
--- NOTE | 2020-06-05 17:47 | ED General ---
General Chief Complaint: Abdominal/GI Problems Stated Complaint: FEVER,NAUSEA,ABD PAIN Source of Information: Patient History of Present Illness Date Seen by Provider: Jun 05, 2020 Time Seen by Provider: 17:29 Initial Comments 30 yo male presenting with complaints of not feeling well. He woke up at 230 am with nausea and diarrhea. He states he has had chills all day and had a temp of 100 F at home. He has had a cough and shortness of breath since 2 weeks ago when he was seen by EFREN Mantilla and had a negative Covid test. He continues to have a cough and has been using a lot of the cough pills from that visit in clinic. Today he has felt sick all day and did not go to work because of feeling bad. He reports having diarrhea "constantly" today with last episode an hour prior to arrival. He has taken ibuprofen and nyquil for his symptoms with the last dose around 1600. He has nausea but no vomiting. Had pain with urination few days ago but none today. He was worried about Covid but said this was the first time he felt good enough to come in and be seen since he woke up at 230 this morning. Timing/Duration: 12-24 Hours (since 230 am), Constant Severity: Severe Associated Systoms: No Chest Pain; Cough (for over 2 weeks); No Diaphoresis; Fever/Chills (subjective with temp up to 100 F); No Headaches, No Loss of Appetite; Malaise, Nausea/Vomiting (nausea but no vomiting); No Rash; Weakness (generalized) Allergies and Home Medications Allergies Coded Allergies: No Known Drug Allergies (Unverified , 07/25/19) Home Medications Azithromycin 250 Mg Tablet, 250 MG PO UD TAKE 2 TABLETS TODAY, THEN TAKE 1 TABLET DAILY FOR 4 MORE DAYS Prescribed by: RUFUS KILLIAN on 07/25/192301 Azithromycin 250 Mg Tablet, 250 MG PO DAILY Prescribed by: AZUCENA HENRY on 06/05/201850 Benzonatate 100 Mg Capsule, 100 MG PO TID Prescribed by: RUFUS KILLIAN on 10/06/192242 Dicyclomine HCl 20 Mg Tablet, 20 MG PO Q6H PRN for abdominal pain/cramping Prescribed by: AZUCENA HENRY on 06/05/20 185 Famotidine 20 Mg Tablet, 20 MG PO BID Prescribed by: LISANDRA ALVARADO on 10/05/19 0001 Ibuprofen 800 Mg Tablet, 800 MG PO Q8H PRN for PAIN Prescribed by: LISANDRA ALVARADO on 10/05/19 0001 Metoclopramide HCl 10 Mg Tablet, 10 MG PO Q6H PRN for NAUSEA/VOMITING Prescribed by: AZUCENA HENRY on 06/05/20 1851 Ondansetron 4 Mg Tab.rapdis, 4 MG PO Q6H PRN for NAUSEA/VOMITING Prescribed by: WILLARD TILLEY on 02/23/20 6387 Patient Home Medication List Home Medication List Reviewed: Yes Review of Systems Review of Systems Constitutional: see HPI EENTM: no symptoms reported Respiratory: see HPI Cardiovascular: no symptoms reported Gastrointestinal: see HPI Genitourinary: see HPI Musculoskeletal: no symptoms reported Skin: no symptoms reported Psychiatric/Neurological: See HPI, Anxiety Hematologic/Lymphatic: No Symptoms Reported Immunological/Allergic: no symptoms reported Past Rxulyoa-Aduqvh-Zaokxj Hx Past Med/Social Hx: Reviewed Nursing Past Med/Soc Hx Patient Social History Alcohol Beverage of Choice: Beer Type Used: Cigars, Electronic/Vapor 2nd Hand Smoke Exposure: No Recent Hopitalizations: No Seasonal Allergies Seasonal Allergies: No Past Medical History Surgeries: Yes Ear Surgery Respiratory: No Cardiac: No Valvular Heart Disease Neurological: No Sexually Transmitted Disease: No HIV/AIDS: No Genitourinary: No Gastrointestinal: Yes Gastroesophageal Reflux Musculoskeletal: No Endocrine: No HEENT: No Cancer: No Psychosocial: No Integumentary: No Blood Disorders: No Physical Exam Vital Signs Vital Signs - First Documented 06/05/20 17:36 Temp 37.8 Pulse 88 Resp 16 B/P (MAP) 136/86 (103) Pulse Ox 99 O2 Delivery Room Air Capillary Refill : Height, Weight, BMI Height: '" Weight: lbs. oz. kg; 28.00 BMI Method: General Appearance: No Apparent Distress, WD/WN HEENT: PERRL/EOMI Neck: Full Range of Motion, Normal Inspection, Non Tender, Supple Respiratory: Chest Non Tender, Lungs Clear, Normal Breath Sounds, No Accessory Muscle Use, No Respiratory Distress Cardiovascular: Regular Rate, Rhythm, Normal Peripheral Pulses Gastrointestinal: Normal Bowel Sounds, No Pulsatile Mass, Soft; No Distended, No Guarding, No Rebound; Tenderness (epigastric) Rectal: Deferred Extremity: Normal Capillary Refill, Normal Inspection, Normal Range of Motion, No Pedal Edema Neurologic/Psychiatric: Alert, Oriented x3, cns II-XII Norm as Tested Skin: Normal Color, Warm/Dry Focused Exam Lactate Level 06/05/20 17:45: Lactic Acid Level 1.33 Lactic Acid Level Laboratory Tests Test 06/05/20 17:45 Lactic Acid Level 1.33 MMOL/L (0.50-2.00) Progress/Results/Core Measures Suspected Sepsis SIRS Temperature: Pulse: Respiratory Rate: Laboratory Tests 06/05/20 17:45: White Blood Count 6.9 Blood Pressure / Mean: 06/05/20 17:45: Lactic Acid Level 1.33 Laboratory Tests 06/05/20 17:45: Creatinine 0.92, Platelet Count 348, Total Bilirubin 0.3 Results/Orders Lab Results Laboratory Tests Test 06/05/20 17:45 06/05/20 17:50 Range/Units White Blood Count 6.9 4.3-11.0 10^3/uL Red Blood Count 5.13 4.35-5.85 10^6/uL Hemoglobin 15.3 13.3-17.7 G/DL Hematocrit 44 40-54 % Mean Corpuscular Volume 86 80-99 FL Mean Corpuscular Hemoglobin 30 25-34 PG Mean Corpuscular Hemoglobin Concent 35 32-36 G/DL Red Cell Distribution Width 12.1 10.0-14.5 % Platelet Count 348 130-400 10^3/uL Mean Platelet Volume 9.8 7.4-10.4 FL Immature Granulocyte % (Auto) 0 % Neutrophils (%) (Auto) 58 42-75 % Lymphocytes (%) (Auto) 27 12-44 % Monocytes (%) (Auto) 8 0-12 % Eosinophils (%) (Auto) 7 0-10 % Basophils (%) (Auto) 0 0-10 % Neutrophils # (Auto) 4.0 1.8-7.8 X 10^3 Lymphocytes # (Auto) 1.9 1.0-4.0 X 10^3 Monocytes # (Auto) 0.6 0.0-1.0 X 10^3 Eosinophils # (Auto) 0.5 H 0.0-0.3 10^3/uL Basophils # (Auto) 0.0 0.0-0.1 10^3/uL Immature Granulocyte # (Auto) 0.0 0.0-0.1 10^3/uL Sodium Level 137 135-145 MMOL/L Potassium Level 4.0 3.6-5.0 MMOL/L Chloride Level 102 98-107 MMOL/L Carbon Dioxide Level 25 21-32 MMOL/L Anion Gap 10 5-14 MMOL/L Blood Urea Nitrogen 8 7-18 MG/DL Creatinine 0.92 0.60-1.30 MG/DL Estimat Glomerular Filtration Rate > 60 BUN/Creatinine Ratio 9 Glucose Level 135 H 70-105 MG/DL Lactic Acid Level 1.33 0.50-2.00 MMOL/L Calcium Level 9.2 8.5-10.1 MG/DL Corrected Calcium 9.0 8.5-10.1 MG/DL Total Bilirubin 0.3 0.1-1.0 MG/DL Aspartate Amino Transf (AST/SGOT) 22 5-34 U/L Alanine Aminotransferase (ALT/SGPT) 33 0-55 U/L Alkaline Phosphatase 67 40-136 U/L Total Protein 7.4 6.4-8.2 GM/DL Albumin 4.2 3.2-4.5 GM/DL Lipase 33 8-78 U/L Serum Alcohol < 10 <10 MG/DL Urine Color YELLOW Urine Clarity CLEAR Urine pH 8.5 5-9 Urine Specific [place] 1.020 1.016-1.022 Urine Protein NEGATIVE NEGATIVE Urine Glucose (UA) NEGATIVE NEGATIVE Urine Ketones NEGATIVE NEGATIVE Urine Nitrite NEGATIVE NEGATIVE Urine Bilirubin NEGATIVE NEGATIVE Urine Urobilinogen 0.2 < = 1.0 MG/DL Urine Leukocyte Esterase NEGATIVE NEGATIVE Urine RBC (Auto) NEGATIVE NEGATIVE Urine RBC NONE /HPF Urine WBC RARE /HPF Urine Squamous Epithelial Cells RARE /HPF Urine Crystals NONE /LPF Urine Bacteria NEGATIVE /HPF Urine Casts NONE /LPF Urine Mucus NEGATIVE /LPF Urine Culture Indicated NO Urine Opiates Screen NEGATIVE NEGATIVE Urine Oxycodone Screen NEGATIVE NEGATIVE Urine Methadone Screen NEGATIVE NEGATIVE Urine Propoxyphene Screen NEGATIVE NEGATIVE Urine Barbiturates Screen NEGATIVE NEGATIVE Ur Tricyclic Antidepressants Screen NEGATIVE NEGATIVE Urine Phencyclidine Screen NEGATIVE NEGATIVE Urine Amphetamines Screen NEGATIVE NEGATIVE Urine Methamphetamines Screen NEGATIVE NEGATIVE Urine Benzodiazepines Screen NEGATIVE NEGATIVE Urine Cocaine Screen NEGATIVE NEGATIVE Urine Cannabinoids Screen POSITIVE H NEGATIVE My Orders Orders - AZUCENA HENRY MD Comprehensive Metabolic Panel (06/05/20 17:38) Lipase (06/05/20 17:38) Ua Culture If Indicated (06/05/20 17:38) Ed Iv/Invasive Line Start (06/05/20 17:38) Cbc With Automated Diff (06/05/20 17:38) Ct Abdomen/Pelvis W (06/05/20 17:38) Chest 1 View Ap/Pa Only (06/05/20 17:38) Blood Culture (06/05/20 17:38) Lactic Acid Analyzer (06/05/20 17:38) Drug Screen Stat (Urine) (06/05/20 17:38) Alcohol (06/05/20 17:38) Ns Iv 1000 Ml (Sodium Chloride 0.9%) (06/05/20 17:41) Pantoprazole Injection (Protonix Injecti (06/05/20 17:41) Ondansetron Injection (Zofran Injectio (06/05/20 17:41) Dicyclomine Injection (Bentyl Injection) (06/05/20 17:41) Iohexol Injection (Omnipaque 350 Mg/Ml 1 (06/05/20 18:00) Received Contrast (Hold Metformin- Contr (06/05/20 18:00) Ns (Ivpb) (Sodium Chloride 0.9% Ivpb Bag (06/05/20 18:00) Sodium Chloride Flush (Catheter Flush Sy (06/05/20 18:00) Azithromycin Tablet (Zithromax Tablet) (06/05/20 18:45) Medications Given in ED Current Medications Medications Dose Ordered Sig/Kelly Route Start Time Stop Time Status Last Admin Dose Admin Iohexol 100 ml ONCE ONCE IV 06/05/20 18:00 06/05/20 18:01 DC 06/05/20 18:16 100 ML Sodium Chloride 10 ml NEEDED PRN IV 06/05/20 18:00 06/05/20 18:16 10 ML Sodium Chloride 100 ml ONCE ONCE IV 06/05/20 18:00 06/05/20 18:01 DC 06/05/20 18:16 80 ML Vital Signs/I&O 06/05/20 17:36 Temp 37.8 Pulse 88 Resp 16 B/P (MAP) 136/86 (103) Pulse Ox 99 O2 Delivery Room Air Capillary Refill : Progress Note #1: Progress Note check labs and urine. Since he was complaining of temp up to 100 F and chills all day will obtain blood culture and lactic acid. For his cough of over 2 weeks obtain Chest xray. For the epigastric abdominal pain with nausea and diarrhea will check CT scan of abdomen/pelvis with IV contrast. Give IVF for hydration, Protonix for possible gastritis and epigastric pain, Zofran for nausea, Bentyl for pain and nausea. Differential diagnosis would include Covid-19, Pneumonia, Viral Gastroenteritis, Colitis, Diverticulitis, Cholelithiasis, Cholecystitis, Pancreatitis. Progress Note #2: Time: 18:18 Progress Note CBC shows normal WBC count with normal differential. No acute significant abnormality on blood count. UA is mildly concentrated with specific gravity of 1.020 but no ketones, nitrites, LE, WBC or bacteria. UDS is positive for THC only. pt continues to have oxygen saturation 98-100% on room air. Awaiting chemistry, ETOH, and radiology imaging. Progress Note #3: Time: 18:27 Progress Note Chemistry shows mild elevation of glucose to 135 but no other acute significant abnormality. His Lipase, renal function, hepatic function and basic electrolytes are normal. ETOH <10. CXR and CT scan results pending. Progress Note #4: Time: 18:38 Progress Note CXR shows LLL infiltrate but pt continued to have 100% oxygen saturation, normal WBC count, normal lactic acid. Will treat with z pack for 2 weeks of cough and infiltrate seen on CXR. Use Mucinex to help with cough. CT does not show any acute significant abnormality for his symptoms. Treat symptomatically with Bentyl, Reglan and OTC meds for GI symptoms. Counseled on follow up and return precautions. He did report his symptoms were improved after treatment in ED. He only got part of his Liter NS bolus because it was unhooked to go to CT and was not restarted when he came back from imaging. Diagnostic Imaging Diagonstic Imaging: Xray Plain Films/CT/US/NM/MRI: chest Comments NAME: WILI SOIRANO MED REC#: [id number] PT STATUS: REG ER : 1990 PHYSICIAN: AZUCENA HENRY MD ADMIT DATE: 06/05/20/ER FS Signed Date of Exam:06/05/20 CHEST 1 VIEW AP/PA ONLY INDICATION: Cough for a couple of weeks. Tested for COVID 2 weeks ago and was negative. FINDINGS: Frontal view of the chest is compared to an exam from September. There has been development of a left basilar infiltrate. Heart size and vascularity are normal. There are no pleural effusions. IMPRESSION: There is a left basilar infiltrate. Dictated by: Dictated on workstation # [id number] Dict: 06/05/201823 Trans: 06/05/201832 [facility] [id number] Interpreted by: ADILIA SPAULDING MD Electronically signed by: ADILIA SPAULDING MD 06/05/201832 Diagonstic Imaging: CT Plain Films/CT/US/NM/MRI: abdomen, pelvis Comments NAME: WILI SORIANO MED REC#: [id number] PT STATUS: REG ER : 1990 PHYSICIAN: AZUCENA HENRY MD ADMIT DATE: 06/05/20/ER FS Draft Date of Exam:06/05/20 CT ABDOMEN/PELVIS W PROCEDURE: CT abdomen and pelvis with contrast. TECHNIQUE: Multiple contiguous axial images were obtained through the abdomen and pelvis after administration of intravenous contrast. Auto Exposure Controls were utilized during the CT exam to meet ALARA standards for radiation dose reduction. All CT scans use one or more of the following dose optimizing techniques: automated exposure control, MA and/or KvP adjustment based on patient size and exam type or iterative reconstruction. INDICATION: Abdominal pain, diarrhea, nausea. COMPARISON STUDY: None FINDINGS: The lung bases are clear. The liver, gallbladder, spleen, pancreas, adrenal glands and kidneys are normal. Urinary bladder and prostate gland are normal. No hernias are present. There is normal appearance of the vascular structures. An appendicolith is present. No inflammation is seen in the appendix. Bowel loops demonstrate no inflammatory or obstructive changes. The osseous structures are normal. IMPRESSION: There is an appendicolith with no inflammatory changes. Dictated on workstation # [id number] Dict: 06/05/201826 Trans: 06/05/201832 [facility] [id number] Interpreted by: ADILIA SPAULDING MD Electronically signed by: Departure Impression Primary Impression: Epigastric abdominal pain Additional Impressions: Nausea alone Diarrhea Qualified Codes: R19.7 - Diarrhea, unspecified Viral gastroenteritis Cough in adult patient Acute viral syndrome Left lower lobe pulmonary infiltrate Disposition: 01 HOME, SELF-CARE Condition: Stable Departure-Patient Inst. Decision time for Depature: 18:52 Referrals: ZHEN MANTILLA APRN (PCP/Family) Primary Care Physician Patient Instructions: Pneumonia, Adult ED, Gastritis ED, Nausea and Vomiting, Adult ED, Diarrhea, Adult ED, Viral Syndrome (DC) Add. Discharge Instructions: Make sure you are drinking plenty of water and electrolyte drinks to staying well hydrated Take the full course of antibiotics to treat for pneumonia seen on chest xray. Use Mucinex over the counter to help loosen your cough. Use Bentyl (Dicyclomine) for abdominal cramping/pain and nausea. Use Reglan (Metoclopramide) for nausea as needed. If not improving in next 2-3 days with medicine check with clinic or if worsening symptoms such as fever over 101 F, uncontrolled vomiting or worsening pain then seek medical care to get rechecked. All discharge instructions reviewed with patient and/or family. Voiced understanding. Scripts Metoclopramide HCl (Metoclopramide HCl) 10 Mg Tablet 10 MG PO Q6H PRN for NAUSEA/VOMITING for 3 Days, #12 TAB 0 Refills Prov: AZUCENA HENRY MD 06/05/20 Dicyclomine HCl (Dicyclomine HCl) 20 Mg Tablet 20 MG PO Q6H PRN for abdominal pain/cramping for 7 Days, #28 TAB 0 Refills Prov: AZUCENA HENRY MD 06/05/20 Azithromycin (Azithromycin) 250 Mg Tablet 250 MG PO DAILY for pneumonia for 4 Days, #4 TAB 0 Refills Prov: AZUCENA HENRY MD 06/05/20 Work/School Note: Work Release Form Date Seen in the Emergency Department: Jun 05, 2020 Return to Work: Jun 07, 2020 Restrictions: No Restrictions Images Torso/Trunk 1 - Tenderness (mild tenderness to palpation of epigastric area) AZUCENA HENRY MD Jun 05, 2020 17:47
[2020-06-05] MEDS ORDERED: HOLD METFORMIN - RECEIVED CONTRAST 20 ML VIAL IV SCH (18:00)
[2020-06-05] MEDS ORDERED: CATHETER FLUSH 10 ML SYR IV PRN (18:00)
[2020-06-05] MEDS ORDERED: IOHEXOL 350 MG/ML 100 ML (OMNIPAQUE 350) VIAL IV ONE (18:00)
[2020-06-05] MEDS ORDERED: NS 100 ML (IVPB) BAG IV ONE (18:00)
[2020-06-05 18:12] LABS: BACTERIA,URINE NEGATIVE /HPF; BILIRUBIN,URINE NEGATIVE (NEGATIVE); CLARITY,URINE CLEAR; COLOR,URINE YELLOW; GLUCOSE, URINE (UA) NEGATIVE (NEGATIVE); KETONES,URINE NEGATIVE (NEGATIVE); LEUKOCYTE ESTERASE ,URINE NEGATIVE (NEGATIVE); NITRITE,URINE NEGATIVE (NEGATIVE); PH,URINE 8.5 (5-9); PROTEIN,URINE NEGATIVE (NEGATIVE); SQUAMOUS EPITHELIAL CELL,UR RARE /HPF; WBC,URINE RARE /HPF
[2020-06-05 18:13] LABS: AMPHETAMINE SCREEN, URINE NEGATIVE (NEGATIVE); BARBITURATE SCREEN URINE NEGATIVE (NEGATIVE); BENZODIAZEPINES SCREEN URINE NEGATIVE (NEGATIVE); CANNABINOID SCREEN, URINE POSITIVE (NEGATIVE); COCAINE SCREEN URINE NEGATIVE (NEGATIVE); METHADONE STAT NEGATIVE (NEGATIVE); METHAMPHETAMINE SCREEN URINE S NEGATIVE (NEGATIVE); OPIATE SCREEN URINE NEGATIVE (NEGATIVE); OXYCODONE STAT NEGATIVE (NEGATIVE); PROPOXYPHENE STAT NEGATIVE (NEGATIVE); TRICYCLIC ANTIDEPRESSANTS SCRE NEGATIVE (NEGATIVE)
[2020-06-05 18:14] LABS: BASOPHILS % (AUTO) 0 % (0-10); EOSINOPHILS # (AUTO) 0.5 10^3/uL (0.0-0.3); EOSINOPHILS % (AUTO) 7 % (0-10); HEMATOCRIT 44 % (40-54); HEMOGLOBIN 15.3 G/DL (13.3-17.7); LYMPHOCYTES # (AUTO) 1.9 X 10^3 (1.0-4.0); LYMPHOCYTES % (AUTO) 27 % (12-44); MEAN CORPUSCULAR HEMOGLOBIN 30 PG (25-34); MEAN CORPUSCULAR HGB CONC 35 G/DL (32-36); MEAN CORPUSCULAR VOLUME 86 FL (80-99); MEAN PLATELET VOLUME 9.8 FL (7.4-10.4); MONOCYTES # (AUTO) 0.6 X 10^3 (0.0-1.0); MONOCYTES % (AUTO) 8 % (0-12); NEUTROPHILS % (AUTO) 58 % (42-75); PLATELET COUNT 348 10^3/uL (130-400); WHITE BLOOD COUNT 6.9 10^3/uL (4.3-11.0)
[2020-06-05 18:20] LABS: ALKALINE PHOSPHATASE 67 U/L (40-136); BILIRUBIN,TOTAL 0.3 MG/DL (0.1-1.0); BUN/CREATININE RATIO 9; CALCIUM 9.2 MG/DL (8.5-10.1); CARBON DIOXIDE 25 MMOL/L (21-32); CHLORIDE 102 MMOL/L (98-107); CREATININE SERUM 0.92 MG/DL (0.60-1.30); GFR ESTIMATED > 60; GLUCOSE 135 MG/DL (70-105); SODIUM 137 MMOL/L (135-145)
[2020-06-05 18:21] LABS: ALANINE AMINOTRANSFERASE 33 U/L (0-55); ALBUMIN 4.2 GM/DL (3.2-4.5); LIPASE 33 U/L (8-78); TOTAL PROTEIN 7.4 GM/DL (6.4-8.2)
--- NOTE | 2020-06-05 18:33 | Diagnostic Imaging Report ---
PROCEDURE: CT abdomen and pelvis with contrast. TECHNIQUE: Multiple contiguous axial images were obtained through the abdomen and pelvis after administration of intravenous contrast. Auto Exposure Controls were utilized during the CT exam to meet ALARA standards for radiation dose reduction. All CT scans use one or more of the following dose optimizing techniques: automated exposure control, MA and/or KvP adjustment based on patient size and exam type or iterative reconstruction. INDICATION: Abdominal pain, diarrhea, nausea. COMPARISON STUDY: None FINDINGS: The lung bases are clear. The liver, gallbladder, spleen, pancreas, adrenal glands and kidneys are normal. Urinary bladder and prostate gland are normal. No hernias are present. There is normal appearance of the vascular structures. An appendicolith is present. No inflammation is seen in the appendix. Bowel loops demonstrate no inflammatory or obstructive changes. The osseous structures are normal. IMPRESSION: There is an appendicolith with no inflammatory changes. Dictated by: Dictated on workstation # [id number]
--- NOTE | 2020-06-05 18:34 | Diagnostic Imaging Report ---
INDICATION: Cough for a couple of weeks. Tested for COVID 2 weeks ago and was negative. FINDINGS: Frontal view of the chest is compared to an exam from September the . There has been development of a left basilar infiltrate. Heart size and vascularity are normal. There are no pleural effusions. IMPRESSION: There is a left basilar infiltrate. Dictated by: Dictated on workstation # [id number]
[2020-06-05] MEDS ORDERED: AZITHROMYCIN 250 MG TAB (ZITHROMAX) PO STA (18:45)
[2020-06-05] MEDS ORDERED: AZIT250T12 PO (18:51)
[2020-06-05] MEDS ORDERED: METO10TA3 PO (18:51)
[2020-06-05] MEDS ORDERED: DICY20TA10 PO (18:51)
[2020-06-05 19:00] VITALS: BP 125/85
== END 2020-06-05 18:55 | disposition home or self-care (01) ==
LOC: EDUNIT# 17:26 → ER FS 17:28
DX: R10.13 Epigastric pain (principal); R11.0 Nausea; R19.7 Diarrhea, unspecified; A08.4 Viral intestinal infection, unspecified; R05 Cough; B34.9 Viral infection, unspecified; R91.8 Other nonspecific abnormal finding of lung field; K21.9 Gastro-esophageal reflux disease without esophagitis
CPT/HCPCS: 36415; 71045; 74177; 80053; 80306; 80320; 81000; 83605; 83690; 85025; 87040

== ENCOUNTER 2020-07-25 13:36 | Observation (INO) | payer MEDICAID ==
[~2020-07-25] VITALS: Ht 190 cm; Wt 104.9 kg
[2020-07-25] VITALS (8 sets, daily range): BP systolic 107–159; BP diastolic 69–88
[~2020-07-25 13:36] MED LIST changes: +AZIT250T12 PO; +DICY20TA10 PO; +MTC10T PO
[2020-07-25] MEDS ORDERED: NS IV 1000 ML 1,000 ML IV STA (13:41)
[2020-07-25] MEDS ORDERED: ONDANSETRON 4 MG/2 ML (SDV) Z0FRAN IVP STA (13:41)
[2020-07-25] MEDS ORDERED: KETOROLAC 30 MG/ML VIAL IVP STA (13:41)
--- NOTE | 2020-07-25 13:48 | ED GI ---
General Chief Complaint: Abdominal/GI Problems Stated Complaint: ABDOMEN PAIN Source of Information: Patient History of Present Illness Date Seen by Provider: Jul 25, 2020 Time Seen by Provider: 13:36 Initial Comments 30-year-old male presenting with increasing abdominal pain over the last month. He had worse pain with eating and drinking. He has a burning type sensation in epigastric area but that he has a sharper pain in the right side and right lower quadrant. He has had a change in his bowel movements where they have been decreased and a little more hard. He had been seen June 05 for epigastric pain and was treated with some antibiotics and medicine for gastritis. He states that in the last 24 hours he has had significant increase in his abdominal pain and it has been much worse on the right side. He has had some subjective fever and chills. He has nausea but no actual vomiting. But when he does go to eat it makes the pain and cramping worse in his belly. Allergies and Home Medications Allergies Coded Allergies: No Known Drug Allergies (Unverified , 07/25/19) Home Medications Azithromycin 250 Mg Tablet, 250 MG PO UD TAKE 2 TABLETS TODAY, THEN TAKE 1 TABLET DAILY FOR 4 MORE DAYS Prescribed by: RUFUS KILLIAN on 07/25/19 230 Azithromycin 250 Mg Tablet, 250 MG PO DAILY Prescribed by: AZUCENA HENRY on 06/05/20 185 Benzonatate 100 Mg Capsule, 100 MG PO TID Prescribed by: RUFUS KILLIAN on 10/06/19 2243 Dicyclomine HCl 20 Mg Tablet, 20 MG PO Q6H PRN for abdominal pain/cramping Prescribed by: AZUCENA HENRY on 06/05/20 185 Famotidine 20 Mg Tablet, 20 MG PO BID Prescribed by: LISANDRA ALVARADO on 10/05/19 0001 Ibuprofen 800 Mg Tablet, 800 MG PO Q8H PRN for PAIN Prescribed by: LISANDRA ALVARADO on 10/05/19 0001 Metoclopramide HCl 10 Mg Tablet, 10 MG PO Q6H PRN for NAUSEA/VOMITING Prescribed by: AZUCENA HENRY on 06/05/20 185 Ondansetron 4 Mg Tab.rapdis, 4 MG PO Q6H PRN for NAUSEA/VOMITING Prescribed by: WILLARD TILLEY on 02/23/20 5779 Patient Home Medication List Home Medication List Reviewed: Yes Review of Systems Review of Systems Constitutional: chills, fever, malaise EENTM: No Symptoms Reported Respiratory: No Symptoms Reported Cardiovascular: No Symptoms Reported Gastrointestinal: See HPI, Abdominal Pain (Diffuse but worse on the right side), Nausea, Poor Appetite; Denies Vomiting Genitourinary: Burning Musculoskeletal: no symptoms reported Skin: no symptoms reported Psychiatric/Neurological: No Symptoms Reported Endocrine: No Symptoms Reported Past Dvoqxet-Ezymdi-Dcfmzb Hx Past Med/Social Hx: Reviewed Nursing Past Med/Soc Hx Patient Social History Alcohol Beverage of Choice: Beer Type Used: Cigars, Electronic/Vapor 2nd Hand Smoke Exposure: No Recent Hopitalizations: No Seasonal Allergies Seasonal Allergies: No Past Medical History Surgeries: Yes Ear Surgery Respiratory: No Cardiac: No Valvular Heart Disease Neurological: No Sexually Transmitted Disease: No HIV/AIDS: No Genitourinary: No Gastrointestinal: No Gastroesophageal Reflux Musculoskeletal: No Endocrine: No HEENT: No Cancer: No Psychosocial: No Integumentary: No Blood Disorders: No Physical Exam Vital Signs Vital Signs - First Documented 07/25/20 14:01 Temp 37.3 Pulse 81 Resp 18 B/P (MAP) 131/87 (102) Pulse Ox 98 O2 Delivery Room Air Capillary Refill : Height/Weight/BMI Height: '" Weight: lbs. oz. 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, alert, normal mood/affect, oriented x 3 Skin: normal color, warm/dry Images 1 - Diffuse pain worse on the right side Progress/Results/Core Measures Results/Orders Lab Results Laboratory Tests Test 07/25/20 13:41 07/25/20 13:45 Range/Units Urine Color YELLOW Urine Clarity CLEAR Urine pH 6.0 5-9 Urine Specific [place] >=1.030 1.016-1.022 Urine Protein NEGATIVE NEGATIVE Urine Glucose (UA) NEGATIVE NEGATIVE Urine Ketones NEGATIVE NEGATIVE Urine Nitrite NEGATIVE NEGATIVE Urine Bilirubin NEGATIVE NEGATIVE Urine Urobilinogen NORMAL < = 1.0 MG/DL Urine Leukocyte Esterase NEGATIVE NEGATIVE Urine RBC (Auto) TRACE-I NEGATIVE Urine RBC RARE /HPF Urine WBC NONE /HPF Urine Crystals NONE /LPF Urine Bacteria NEGATIVE /HPF Urine Casts NONE /LPF Urine Mucus SMALL H /LPF Urine Culture Indicated NO White Blood Count 16.5 H 4.3-11.0 10^3/uL Red Blood Count 5.28 4.35-5.85 10^6/uL Hemoglobin 15.6 13.3-17.7 G/DL Hematocrit 45 40-54 % Mean Corpuscular Volume 85 80-99 FL Mean Corpuscular Hemoglobin 30 25-34 PG Mean Corpuscular Hemoglobin Concent 35 32-36 G/DL Red Cell Distribution Width 12.5 10.0-14.5 % Platelet Count 341 130-400 10^3/uL Mean Platelet Volume 9.6 7.4-10.4 FL Immature Granulocyte % (Auto) 0 % Neutrophils (%) (Auto) 82 H 42-75 % Lymphocytes (%) (Auto) 10 L 12-44 % Monocytes (%) (Auto) 6 0-12 % Eosinophils (%) (Auto) 1 0-10 % Basophils (%) (Auto) 0 0-10 % Neutrophils # (Auto) 13.5 H 1.8-7.8 X 10^3 Lymphocytes # (Auto) 1.7 1.0-4.0 X 10^3 Monocytes # (Auto) 1.1 H 0.0-1.0 X 10^3 Eosinophils # (Auto) 0.2 0.0-0.3 10^3/uL Basophils # (Auto) 0.0 0.0-0.1 10^3/uL Immature Granulocyte # (Auto) 0.1 0.0-0.1 10^3/uL Neutrophils % (Manual) 79 % Lymphocytes % (Manual) 11 % Monocytes % (Manual) 5 % Eosinophils % (Manual) 1 % Band Neutrophils 4 % Blood Morphology Comment NORMAL Sodium Level 140 135-145 MMOL/L Potassium Level 3.9 3.6-5.0 MMOL/L Chloride Level 104 98-107 MMOL/L Carbon Dioxide Level 24 21-32 MMOL/L Anion Gap 12 5-14 MMOL/L Blood Urea Nitrogen 10 7-18 MG/DL Creatinine 0.95 0.60-1.30 MG/DL Estimat Glomerular Filtration Rate > 60 BUN/Creatinine Ratio 11 Glucose Level 128 H 70-105 MG/DL Calcium Level 10.0 8.5-10.1 MG/DL Corrected Calcium 8.5-10.1 MG/DL Total Bilirubin 0.4 0.1-1.0 MG/DL Aspartate Amino Transf (AST/SGOT) 37 H 5-34 U/L Alanine Aminotransferase (ALT/SGPT) 61 H 0-55 U/L Alkaline Phosphatase 83 40-136 U/L Total Protein 8.2 6.4-8.2 GM/DL Albumin 4.6 H 3.2-4.5 GM/DL Lipase 25 8-78 U/L My Orders Orders - AZUCENA HENRY MD Comprehensive Metabolic Panel (07/25/20 13:41) Lipase (07/25/20 13:41) Ua Culture If Indicated (07/25/20 13:41) Ed Iv/Invasive Line Start (07/25/20 13:41) Cbc With Automated Diff (07/25/20 13:41) Ct Abdomen/Pelvis Wo (07/25/20 13:41) Ns Iv 1000 Ml (Sodium Chloride 0.9%) (07/25/20 13:41) Ketorolac Injection (Toradol Injection) (07/25/20 13:41) Ondansetron Injection (Zofran Injectio (07/25/20 13:41) Manual Differential (07/25/20 13:45) Piperacillin Sodium/Tazobactam (Zosyn Vi (07/25/20 15:36) Vital Signs/I&O 07/25/20 14:01 Temp 37.3 Pulse 81 Resp 18 B/P (MAP) 131/87 (102) Pulse Ox 98 O2 Delivery Room Air Progress Progress Note #1: Progress Note Obtain basic labs as well as urinalysis. Order a CT scan of his abdomen pelvis to see if there has been a change from June 05. With him now having pain in the right flank rather than just epigastric he certainly could have a colitis, diverticulitis, appendicitis, perforated ulcer with intra-abdominal peritonitis. Try IV fluids for hydration, Toradol for pain, Zofran for nausea. Progress Note #2: Time: 14:38 Progress Note On recheck of the patient he has elevated WBC count with WBC of 16.5 with left shift. UA shows no infection but elevated Specific gravity. Chemistry without acute significant abnormality but mild bump in LFTs. CT scan does not show any kidney stones and he has no definite appendicitis. He has recurrent appendicolith seen on Jun 05 as well. Repeat exam of patient shows he still has abdominal pain but has mild improvement of pain. He still has guarding and rebound type pain in RLQ area. With his pain persisting despite negative CT scan for definite Appendicitis but having elevated WBC count with left shift I called and spoke with Dr. Fernandez, the surgeon metalizer field operation. He reviewed the images as well and with the patient having appendicolith he does have increased risk of appendicitis at some point in his life and having WBC and pain, will have the patient come down to be seen and if he continues to have pain then will see about appendectomy. Pt last ate at 1130 or noon and only ate part of Naz's meal. When he tried to eat it made his pain worse. Pt was interested in surgery if it would make his pain better. He wants his to drive him down rather than take ambulance. Stressed i mportance of staying NPO and going straight to hospital in [place]. Start Zosyn per Dr. Fernandez and since he last ate around noon will admit for hydration, pain control and nausea medicine. Consult Dr. Rivera with [facility] since pt follows with PSYCHIATRIC. Diagnostic Imaging Diagonstic Imaging: CT Plain Films/CT/US/NM/MRI: abdomen, pelvis Comments [facility], [facility]. [place], [place] NAME: WILI SORIANO [facility] REC#: [id number] PT STATUS: REG ER : 1990 PHYSICIAN: AZUCENA HENRY MD ADMIT DATE: 07/25/20/ER FS Signed Date of Exam:07/25/20 CT ABDOMEN/PELVIS WO EXAMINATION: CT Abdomen Pelvis without contrast. TECHNIQUE: Multiple contiguous axial images were obtained through the abdomen and pelvis without the use of intravenous contrast. All CT scans use one or more of the following dose optimizing techniques: automated exposure control, MA and/or KvP adjustment based on a patient size and exam type, or iterative reconstruction. HISTORY: Abdominal pain and hematuria. COMPARISON: None available. FINDINGS: Lung bases: The lung bases are clear. Solid organs: The liver is normal. The gallbladder is normal. There is no biliary ductal dilation. Pancreas is normal. Spleen is normal. Adrenal glands are normal. The kidneys are normal without visualized calculus or hydronephrosis. Bowel: The stomach and small bowel are normal without obstruction. The colon and appendix are normal. Peritoneum: There is no intraperitoneal free fluid or free air. No suspicious lymphadenopathy. Vasculature: Normal without aneurysm. Musculoskeletal: No suspicious osseous lesion or compression fracture. Pelvis: The prostate gland is normal. The urinary bladder is normal. IMPRESSION: 1. No visualized renal calculus or hydronephrosis. 2. No other acute abnormality in the abdomen or pelvis. Dictated by: Dictated on workstation # [id number] Dict: 07/25/20 1418 Trans: 07/25/20 1454 [facility] [id number] Interpreted by: FLO MAYA DO Electronically signed by: FLO MAYA DO 07/25/20 1454 Departure Communication (Admissions) Time/Spoke to Admitting Phy: 15:21 d/w Dr. Fernandez as surgeon metalizer field operation and will admit for hydration, pain control and Zosyn. With him eating last at noon will plan on overnight hydration keeping him NPO and then if still having pain and problems plan on appendectomy in am. Time/Spoke to Consulting Phy: 15:28 D/w Dr. Rivera for PSYCHIATRIC and since pt had no active medical problems other than abdominal pain and possible appendicitis she will consult and have Dr. Fernandez as primary for observation admit of pt. Impression Primary Impression: Right sided abdominal pain Additional Impressions: Appendicolith Leukocytosis Qualified Codes: D72.829 - Elevated white blood cell count, unspecified Disposition: 30 STILL A PATIENT Condition: Stable Admissions Decision to Admit Reason: Admit from ER (General) Decision to Admit/Date: Jul 25, 2020 Time/Decision to Admit Time: 15:21 Departure-Patient Inst. Referrals: ZHEN MANTILLA APRN (PCP/Family) Primary Care Physician Work/School Note: Work Release Form Date Seen in the Emergency Department: Jul 25, 2020 Return to Work: Jul 27, 2020 Restrictions: Need Release from Doctor ENYART,AZUCENA E MD Jul 25, 2020 13:48
[2020-07-25 13:55] LABS: CLARITY,URINE CLEAR; COLOR,URINE YELLOW; GLUCOSE, URINE (UA) NEGATIVE (NEGATIVE); PROTEIN,URINE NEGATIVE (NEGATIVE)
[2020-07-25 13:56] LABS: BACTERIA,URINE NEGATIVE /HPF; BILIRUBIN,URINE NEGATIVE (NEGATIVE); KETONES,URINE NEGATIVE (NEGATIVE); LEUKOCYTE ESTERASE ,URINE NEGATIVE (NEGATIVE); NITRITE,URINE NEGATIVE (NEGATIVE); RBC,URINE RARE /HPF
[2020-07-25 14:02] LABS: BASOPHILS % (AUTO) 0 % (0-10); EOSINOPHILS # (AUTO) 0.2 10^3/uL (0.0-0.3); EOSINOPHILS % (AUTO) 1 % (0-10); HEMATOCRIT 45 % (40-54); HEMOGLOBIN 15.6 G/DL (13.3-17.7); LYMPHOCYTES # (AUTO) 1.7 X 10^3 (1.0-4.0); LYMPHOCYTES % (AUTO) 10 % (12-44); MEAN CORPUSCULAR HEMOGLOBIN 30 PG (25-34); MEAN CORPUSCULAR HGB CONC 35 G/DL (32-36); MEAN CORPUSCULAR VOLUME 85 FL (80-99); MEAN PLATELET VOLUME 9.6 FL (7.4-10.4); MONOCYTES # (AUTO) 1.1 X 10^3 (0.0-1.0); MONOCYTES % (AUTO) 6 % (0-12); NEUTROPHILS # (AUTO) 13.5 X 10^3 (1.8-7.8); NEUTROPHILS % (AUTO) 82 % (42-75); PLATELET COUNT 341 10^3/uL (130-400); WHITE BLOOD COUNT 16.5 10^3/uL (4.3-11.0)
[2020-07-25 14:13] LABS: BAND NEUTROPHILS 4 %; EOSINOPHILS % (MANUAL) 1 %; LYMPHOCYTES % (MANUAL) 11 %; MONOCYTES % (MANUAL) 5 %; NEUTROPHILS % (MANUAL) 79 %; RBC MORPH NORMAL
[2020-07-25 14:17] LABS: ALANINE AMINOTRANSFERASE 61 U/L (0-55); ALBUMIN 4.6 GM/DL (3.2-4.5); ALKALINE PHOSPHATASE 83 U/L (40-136); BILIRUBIN,TOTAL 0.4 MG/DL (0.1-1.0); BUN/CREATININE RATIO 11; CARBON DIOXIDE 24 MMOL/L (21-32); CHLORIDE 104 MMOL/L (98-107); CREATININE SERUM 0.95 MG/DL (0.60-1.30); GFR ESTIMATED > 60; GLUCOSE 128 MG/DL (70-105); LIPASE 25 U/L (8-78); POTASSIUM 3.9 MMOL/L (3.6-5.0); SODIUM 140 MMOL/L (135-145); TOTAL PROTEIN 8.2 GM/DL (6.4-8.2)
--- NOTE | 2020-07-25 14:22 | Diagnostic Imaging Report ---
EXAMINATION: CT Abdomen Pelvis without contrast. TECHNIQUE: Multiple contiguous axial images were obtained through the abdomen and pelvis without the use of intravenous contrast. All CT scans use one or more of the following dose optimizing techniques: automated exposure control, MA and/or KvP adjustment based on a patient size and exam type, or iterative reconstruction. HISTORY: Abdominal pain and hematuria. COMPARISON: None available. FINDINGS: Lung bases: The lung bases are clear. Solid organs: The liver is normal. The gallbladder is normal. There is no biliary ductal dilation. Pancreas is normal. Spleen is normal. Adrenal glands are normal. The kidneys are normal without visualized calculus or hydronephrosis. Bowel: The stomach and small bowel are normal without obstruction. The colon and appendix are normal. Peritoneum: There is no intraperitoneal free fluid or free air. No suspicious lymphadenopathy. Vasculature: Normal without aneurysm. Musculoskeletal: No suspicious osseous lesion or compression fracture. Pelvis: The prostate gland is normal. The urinary bladder is normal. IMPRESSION: 1. No visualized renal calculus or hydronephrosis. 2. No other acute abnormality in the abdomen or pelvis. Dictated by: Dictated on workstation # [id number]
[2020-07-25] MEDS ORDERED: PIPERACILLIN SODIUM/TAZOBACTAM 4.5 GM in NS (IVPB) 100 ML IV STA (15:36)
[2020-07-25] MEDS ORDERED: morphine INJ 4 MG/ML 1 ML (VIAL/SYRINGE) ONE (18:01)
[2020-07-25] MEDS ORDERED: LACTATED RINGERS 1,000 ML IV ONE (18:09)
[2020-07-25] MEDS ORDERED: ONDANSETRON 4 MG/2 ML (SDV) Z0FRAN IV PRN (18:15)
[2020-07-25] MEDS ORDERED: morphine INJ 4 MG/ML 1 ML (VIAL/SYRINGE) IV PRN (18:15)
[2020-07-25] MEDS: LACTATED RINGERS 1,000 ML IV SCH ×3 (18:16→20:22)
[2020-07-25] MEDS ORDERED: CATHETER FLUSH 10 ML SYR IV PRN (18:30)
--- NOTE | 2020-07-25 18:41 | History & Physical-Surgical ---
TREV PAL MED STUDENT 07/25/20 1841: History of Present Illness History of Present Illness Reason for visit/HPI Right lower quadrant pain, elevated WBC count, and an appendicalith. Date of Admission Jul 25, 2020 at 17:46 Date Seen by a Provider: Jul 25, 2020 Time Seen by a Provider: 18:03 I consulted on this patient on Attending Physician Eben Esqueda DO Admitting Physician Varsha Toribio Aprn Consult Allergies and Home Medications Allergies Coded Allergies: No Known Drug Allergies (Unverified , 07/25/19) Home Medications Azithromycin 250 Mg Tablet, 250 MG PO UD TAKE 2 TABLETS TODAY, THEN TAKE 1 TABLET DAILY FOR 4 MORE DAYS Prescribed by: RUFUS KILLIAN on 07/25/192301 Azithromycin 250 Mg Tablet, 250 MG PO DAILY Prescribed by: AZUCENA HENRY on 06/05/201850 Benzonatate 100 Mg Capsule, 100 MG PO TID Prescribed by: RUFUS KILLIAN on 10/06/19 2243 Dicyclomine HCl 20 Mg Tablet, 20 MG PO Q6H PRN for abdominal pain/cramping Prescribed by: AZUCENA HENRY on 06/05/20 185 Famotidine 20 Mg Tablet, 20 MG PO BID Prescribed by: LISANDRA ALVARADO on 10/05/192301 Ibuprofen 800 Mg Tablet, 800 MG PO Q8H PRN for PAIN Prescribed by: LISANDRA ALVARADO on 10/05/19 0001 Metoclopramide HCl 10 Mg Tablet, 10 MG PO Q6H PRN for NAUSEA/VOMITING Prescribed by: AZUCENA HENRY on 06/05/20 185 Ondansetron 4 Mg Tab.rapdis, 4 MG PO Q6H PRN for NAUSEA/VOMITING Prescribed by: WILLARD TILLEY on 02/23/20 2339 Patient Home Medication List Home Medication List Reviewed: Yes (Reports no regular medications) Past Rsvwqdi-Wqhtyl-Mbxaeu Hx Patient Social History Smoking Status: Current Someday Smoker Type Used: Electronic/Vapor 2nd Hand Smoke Exposure: No Recent Hopitalizations: No Alcohol Use?: Yes Seasonal Allergies Seasonal Allergies: No Surgeries History of Surgeries: Yes Respiratory History of Respiratory Disorde: No Cardiovascular History of Cardiac Disorders: No Cardiac Disorders: Valvular Heart Disease Neurological History of Neurological Disord: No Reproductive System Sexually Transmitted Disease: No HIV/AIDS: No Genitourinary History of Genitourinary Disor: No Gastrointestinal History of Gastrointestinal Di: No Gastrointestinal Disorders: Gastroesophageal Reflux (daily) Musculoskeletal History of Musculoskeletal Dis: No Endocrine History of Endocrine Disorders: No HEENT History of HEENT Disorders: No Cancer History of Cancer: No Psychosocial History of Psychiatric Problem: No Integumentary History of Skin or Integumenta: No Blood Transfusions History of Blood Disorders: No Review of Systems Constitutional: chills, weakness, weight gain (Says stomach feels swollen and getting larger in the last 2 months) EENTM: No hearing loss, No blurred vision, No double vision, No eye pain, No vision loss Respiratory: No cough, No hemoptysis; short of breath (seasonal reactive airway); No wheezing Cardiovascular: chest pain (chest pain with daily heart burn); No palpitations, No vascular heart diseas Gastrointestinal: No RUQ, No LUQ; RLQ; No LLQ; abdominal pain (RLQ); No constipation; diarrhea; No hematemesis; heartburn, nausea; No vomiting Genitourinary: No dysuria, No hematuria, No hesitancy, No pain Musculoskeletal: back pain (lower right side); No joint pain; muscle pain; No muscle stiffness; muscle cramps, muscle weakness (generalized weakness and fatigue) Skin: No change in hair/nails, No hx of skin cancer, No rash Psychiatric/Neurological: Headache; Denies Numbness, Denies Paresthesia; Tingling Physical Exam Vital Signs Vital Signs - First Documented 07/25/20 14:01 Temp 37.3 Pulse 81 Resp 18 B/P (MAP) 131/87 (102) Pulse Ox 98 O2 Delivery Room Air Capillary Refill : Less Than 3 Seconds Height, Weight, BMI Height: '" Weight: lbs. oz. kg; 32.00 BMI Method: General Appearance: WD/WN, Anxious, Mild Distress Eyes: Bilateral Eye Normal Inspection, Bilateral Eye PERRL, Bilateral Eye EOMI HEENT: PERRL/EOMI, Normal ENT Inspection, Pharynx Normal; No Scleral Icterus (L), No Scleral Icterus (R) Neck: Full Range of Motion, Normal Inspection, Non Tender, Supple Respiratory: Chest Non Tender, Lungs Clear, Normal Breath Sounds, No Accessory Muscle Use, No Respiratory Distress Cardiovascular: Regular Rate, Rhythm, No Edema, No Gallop, No JVD, No Murmur, Normal Peripheral Pulses Gastrointestinal: No Pulsatile Mass, Abnormal Bowel Sounds (Hypoactive bowel sounds), Guarding, Tenderness Rectal: Deferred Back: No CVA Tenderness Extremity: Normal Capillary Refill, Normal Inspection, Normal Range of Motion, Non Tender, No Pedal Edema Neurologic/Psychiatric: Alert, Oriented x3, No Motor/Sensory Deficits, Normal Mood/Affect Skin: Normal Color, Warm/Dry Lymphatic: No Adenopathy Data Review Labs Laboratory Tests 07/25/20 13:41: Urine Color YELLOW, Urine Clarity CLEAR, Urine pH 6.0, Urine Specific [place] >=1.030, Urine Protein NEGATIVE, Urine Glucose (UA) NEGATIVE, Urine Ketones NEGATIVE, Urine Nitrite NEGATIVE, Urine Bilirubin NEGATIVE, Urine Urobilinogen NORMAL, Urine Leukocyte Esterase NEGATIVE, Urine RBC (Auto) TRACE-I, Urine RBC RARE, Urine WBC NONE, Urine Crystals NONE, Urine Bacteria NEGATIVE, Urine Casts NONE, Urine Mucus SMALLH, Urine Culture Indicated NO 07/25/20 13:45: White Blood Count 16.5H, Red Blood Count 5.28, Hemoglobin 15.6, Hematocrit 45, Mean Corpuscular Volume 85, Mean Corpuscular Hemoglobin 30, Mean Corpuscular Hemoglobin Concent 35, Red Cell Distribution Width 12.5, Platelet Count 341, Mean Platelet Volume 9.6, Immature Granulocyte % (Auto) 0, Neutrophils (%) (Auto) 82H, Lymphocytes (%) (Auto) 10L, Monocytes (%) (Auto) 6, Eosinophils (%) (Auto) 1, Basophils (%) (Auto) 0, Neutrophils # (Auto) 13.5H, Lymphocytes # (Auto) 1.7, Monocytes # (Auto) 1.1H, Eosinophils # (Auto) 0.2, Basophils # (Auto) 0.0, Immature Granulocyte # (Auto) 0.1, Neutrophils % (Manual) 79, Lymphocytes % (Manual) 11, Monocytes % (Manual) 5, Eosinophils % (Manual) 1, Band Neutrophils 4, Blood Morphology Comment NORMAL, Sodium Level 140, Potassium Level 3.9, Chloride Level 104, Carbon Dioxide Level 24, Anion Gap 12, Blood Urea Nitrogen 10, Creatinine 0.95, Estimat Glomerular Filtration Rate > 60, BUN/Creatinine Ratio 11, Glucose Level 128H, Calcium Level 10.0, Corrected Calc ium , Total Bilirubin 0.4, Aspartate Amino Transf (AST/SGOT) 37H, Alanine Aminotransferase (ALT/SGPT) 61H, Alkaline Phosphatase 83, Total Protein 8.2, Albumin 4.6H, Lipase 25 Assessment/Plan Assessment/Plan Admission Diagonsis RLQ pain, appendicolith with elevated WBC. Admission Status: Other (Same Day Surgery) Assessment/Plan ASSESSMENT RLQ pain Elevated WBC Appendicolith per CT scan PLAN Laparoscopic appendectomy, all other indicated procedures Clinical Quality Measures Smoking Cessation Counseling: Counseling-Asymptomatic: 3-10 minutes EBEN ESQUEDA DO 07/25/202006: History of Present Illness History of Present Illness Reason for visit/HPI CC: RLQ abd pain Patient is a 30 year old male with abdominal pain the last month on and off in the right lower quadrant. In the last 24 hours pain worsened. Sharp and colicky pain. No radiation of pain. Can not move or jump up and down without it hurting. Having nausea without vomiting. Patient denies fever sweats, shortness of breath or chest pain. Had ct scan showing appendicolith. Allergies and Home Medications Allergies Coded Allergies: No Known Drug Allergies (Unverified , 07/25/19) Home Medications Azithromycin 250 Mg Tablet, 250 MG PO UD TAKE 2 TABLETS TODAY, THEN TAKE 1 TABLET DAILY FOR 4 MORE DAYS Prescribed by: RUFUS KILLIAN on 07/25/19 230 Azithromycin 250 Mg Tablet, 250 MG PO DAILY Prescribed by: AZUCENA HENRY on 06/05/201850 Benzonatate 100 Mg Capsule, 100 MG PO TID Prescribed by: RUFUS KILLIAN on 10/06/19 2243 Dicyclomine HCl 20 Mg Tablet, 20 MG PO Q6H PRN for abdominal pain/cramping Prescribed by: AZUCENA HENRY on 06/05/20 185 Famotidine 20 Mg Tablet, 20 MG PO BID Prescribed by: LISANDRA ALVARADO on 10/05/19 0001 Ibuprofen 800 Mg Tablet, 800 MG PO Q8H PRN for PAIN Prescribed by: LISANDRA ALVARADO on 10/05/19 0001 Metoclopramide HCl 10 Mg Tablet, 10 MG PO Q6H PRN for NAUSEA/VOMITING Prescribed by: AZUCENA HENRY on 06/05/20 185 Ondansetron 4 Mg Tab.rapdis, 4 MG PO Q6H PRN for NAUSEA/VOMITING Prescribed by: WILLARD TILLEY on 02/23/20 2830 Patient Home Medication List Home Medication List Reviewed: Yes (Reports no regular medications) Past Nolzwbl-Dzlwgx-Ikreyd Hx Reviewed Nursing Assessment Reviewed/Agree w Nursing PMH: Yes Family Medical History Significant Family History: No Pertinent Family Hx Review of Systems Constitutional: chills, weight gain EENTM: No hearing loss, No blurred vision, No double vision, No eye pain, No vision loss Respiratory: No cough, No hemoptysis; short of breath (seasonal reactive airway); No wheezing Cardiovascular: No chest pain, No palpitations, No vascular heart diseas Genitourinary: No dysuria, No hematuria, No hesitancy, No pain Musculoskeletal: back pain (lower right side); No joint pain Skin: No change in hair/nails, No hx of skin cancer, No rash Psychiatric/Neurological: Denies Headache, Denies Numbness All Other Systems Reviewed Negative Unless Noted: Yes (Negative excepted noted.) Physical Exam General Appearance: No Apparent Distress, WD/WN; No Mild Distress HEENT: Normal ENT Inspection, Pharynx Normal Neck: Full Range of Motion, Non Tender, Supple Respiratory: Chest Non Tender, No Accessory Muscle Use, No Respiratory Distress Cardiovascular: Regular Rate, Rhythm, No JVD Gastrointestinal: Soft, Tenderness (right lower quadrant) Rectal: Deferred Back: No CVA Tenderness, No Vertebral Tenderness Extremity: Normal Capillary Refill, Normal Inspection, Normal Range of Motion, Non Tender Neurologic/Psychiatric: Alert, Oriented x3, No Motor/Sensory Deficits, Normal Mood/Affect Skin: Normal Color, Warm/Dry Lymphatic: No Adenopathy Assessment/Plan Assessment/Plan Admission Diagonsis right lower quadrant abdominal pain appendicolith leukocytosis Admission Status: Observation (Same Day Surgery) Assessment/Plan right lower quadrant abdominal pain appendicolith leukocytosis Patient discussed his physical exam is consistent with appendicitis, however ct scan showing no abnormality except appendicolith. Also with leukocytosis that also is consistent with appendicitis. We discussed options and he understands risks and benefits of laparoscopic appendectomy all other indicated procedures. He understands may not find anything abnormal. He wishes to proceed. To OR. Supervisory-Addendum Brief Verification & Attestation Participated in pt care: history, MDM, physical Personally performed: exam, history, MDM, supervision of care Care discussed with: Medical Student Procedures: n/a Results interpretation: Verified all documentation Verification and Attestation of Medical Student E/M Service A medical student performed and documented this service in my presence. I reviewed and verified all information documented by the medical student and made modifications to such information, when appropriate. I personally performed the physical exam and medical decision making. Eben Esqueda, Jul 25, 2020,20:10 TREV PAL MED STUDENT Jul 25, 2020 18:41 EBEN ESQUEDA DO Jul 25, 2020 20:07
[2020-07-25] MEDS ORDERED: fentaNYL INJECTION 100 MCG/2 ML AMP ONE (19:22)
[2020-07-25] MEDS ORDERED: ROCURONIUM 10 MG/ML 5 ML SYRINGE IV ONE (19:22)
[2020-07-25] MEDS ORDERED: proPOfol 200 MG/20 ML (DIPRIVAN) VIAL IV ONE (19:22)
[2020-07-25] MEDS ORDERED: MIDAZOLAM 2 MG/2 ML (VERSED) VIAL ONE (19:22)
[2020-07-25] MEDS ORDERED: SUCCINYLCHOLINE INJ 100 MG/5 ML SYR/VIAL ONE (19:22)
[2020-07-25] MEDS ORDERED: LIDOCAINE PF 2% 5 ML (XYLOCAINE) VIAL ONE (19:22)
[2020-07-25] MEDS ORDERED: ONDANSETRON 4 MG/2 ML (SDV) Z0FRAN ONE (19:22)
[2020-07-25] MEDS ORDERED: SEVOFLURANE (ULTANE) 15 ML INHAL SOLN ONE (19:23)
[2020-07-25] MEDS ORDERED: LIDOCAINE/EPI 1%-1:200,000 (XYLOCAINE) 10 ML VIAL ONE (19:26)
[2020-07-25] MEDS ORDERED: ceFAZolin INJECTION 2,000 MG ONE (20:00)
[2020-07-25] MEDS ORDERED: morphine INJ 10 MG/ML 1ML (SYR OR VIAL) ONE (20:29)
--- NOTE | 2020-07-25 20:48 | Progress Note-Post Operative ---
Post-Operative Progess Note Surgeon (s)/Personnel Technician (s) Surgeon HONEY ESQUEDA DO Personnel Technician: na Pre-Operative Diagnosis rlq abdominal pain, appendicolith Post-Operative Diagnosis acute appendicitis Procedure & Operative Findings Date of Procedure 07/25/20 Procedure Performed/Findings PROCEDURE: Laparoscopic appendectomy. COMPLICATIONS: None. INDICATIONS: The patient is a 30 year old male who has been having right lower quadrant abdominal pain. Patient's exam consistent with appendicitis. I discussed risk and benefits of laparoscopic appendectomy and all indicated procedures with the possibility being a normal appendix. The patient understands the risks and benefits and wishes to proceed. Consent was signed on the chart. DESCRIPTION OF PROCEDURE: The patient was taken to the operating suite, prepped and draped in a sterile fashion. Timeout was performed. Local anesthetic was infiltrated just above the umbilicus and 11-blade scalpel was used to make a skin incision. Cautery was used to dissect down to the fascia and scored. Kochers were used to grasp and elevate it and the abdomen was then entered. A 0 Vicryl was placed in a anuonx-nl-xjiha fashion for closure at the end of the case. The balloon trocar was inserted into the abdomen and pneumoperitoneum was achieved. Under direct visualization of the laparoscope, a 5 mm trocar was placed in the suprapubic region and a 5 mm trocar was placed in the left lower quadrant. Appendix was located, Inflamed distal appendix. The mesoappendix was then divided with Ligasure. Once at the base an Endo-HERRERA 2.5 stapler was then fired across the base of the appendix. It was then placed in an Endobag and removed through the 12 mm trocar site. The abdomen was then irrigated and suctioned. No other pathology noted. The abdomen was then desufflated and the trocars were removed. The 0 Vicryl placed at the beginning of the case was then tied closing the 12 mm fascial defect. The skin was then closed using 4-0 Monocryl in a subcuticular fashion. The abdomen was then washed and dried and Skin Affix was placed over the incisions. The patient tolerated the procedure well without any complications and was taken to the recovery room in stable condition. Anesthesia Type general Estimated Blood Loss Estimated blood loss (mL): minimal Specimens/Packing Specimens Removed appendix HONEY ESQUEDA DO Jul 25, 2020 20:48
[2020-07-25] MEDS ORDERED: MEPERIDINE (DEMEROL) INJ 50 MG/ML ONE (20:55)
[2020-07-25] MEDS ORDERED: DOCU-143 PO (20:57)
[2020-07-25] MEDS ORDERED: ACHD5005 PO (20:57)
--- NOTE | 2020-07-25 20:58 | Discharge Inst-Simple/Standard ---
Discharge Inst-Standard Discharge Medications New, Converted or Re-Newed RX: RX on Chart Patient Instructions/Follow Up Plan of Care/Instructions/FU: 2 weeks Rebecca Activity as Tolerated: No Discharge Diet: Regular Diet Other Inst to Patient Follow up Appt: Make appointment for 2 week. Instructions: No lifting greater than 10 pounds. No strenuous activity. May shower in 24 hours, no tub bath or soaking. Use incentive spirometer at home as directed. No Smoking Skin/Wound Care: You have special glue over your incision that will fall off on it's own. Symptoms to Report: Appetite Changes, Extremity Discoloration, Numbness/Tingling, Swelling Increased, Bleeding Excessive, Eyesight Changes, Pain Increased, Urine Color Change, Constipation(Persistent), Fever over 101 degree F, Pain/Pressure in chest, Urinating Difficulty, Cough Up/Vomit Blood, Heart Beat Irreg/Pounding, Pain/Pressure in jaw, Vaginal Bleeding Increase, Cramps in feet or legs, Lightheadedness, Pain/Pressure in shoulder, Diarrhea(Persistent), Memory Changes Suddenly, Questions/Concerns, Weight gain consecutive days, Dizziness/Fainting, Nausea/Vomiting, Shortness of Breath, Weight gain over 2 pounds If questions or concerns contact your physician Or seek help at emergency department. HONEY ESQUEDA DO Jul 25, 2020 20:58
[2020-07-25] MEDS ORDERED: ONDANSETRON 4 MG/2 ML (SDV) Z0FRAN IVP PRN (21:00)
[2020-07-25] MEDS ORDERED: HYDROmorphone 2 MG/ML VIAL (DILAUDID) IV ONE (21:00)
[2020-07-25] MEDS ORDERED: morphine INJ 10 MG/ML 1ML (SYR OR VIAL) IVP ONE (21:00)
[2020-07-25] MEDS ORDERED: MEPERIDINE (DEMEROL) INJ 50 MG/ML IVP ONE (21:00)
[2020-07-25] MEDS: HYDROcodone/APAP 5 MG/325 MG (LORTAB) TAB PO PRN (22:15)
[2020-07-25] MEDS: PANTOPRAZOLE 40 MG (PROTONIX) VIAL IV SCH (22:15)
[2020-07-25] MEDS: PIPERACILLIN/TAZO 4.5 GM/NS 100 ML IV SCH ×2 (22:15)
[2020-07-26 00:55] VITALS: BP 119/70
[2020-07-26] MEDS: LACTATED RINGERS 1,000 ML IV SCH (02:05)
[2020-07-26] MEDS: HYDROcodone/APAP 5 MG/325 MG (LORTAB) TAB PO PRN ×2 (02:38→06:56)
[2020-07-26 03:42] VITALS: BP 107/57
[2020-07-26 06:02] LABS: BASOPHILS % (AUTO) 0 % (0-10); EOSINOPHILS % (AUTO) 0 % (0-10); HEMATOCRIT 40 % (40-54); HEMOGLOBIN 13.4 g/dL (13.3-17.7); LYMPHOCYTES # (AUTO) 0.5 10^3/uL (1.0-4.0); LYMPHOCYTES % (AUTO) 4 % (12-44); MEAN CORPUSCULAR HEMOGLOBIN 29 pg (25-34); MEAN CORPUSCULAR HGB CONC 33 g/dL (32-36); MEAN CORPUSCULAR VOLUME 88 fL (80-99); MEAN PLATELET VOLUME 10.3 fL (9.0-12.2); MONOCYTES # (AUTO) 0.4 10^3/uL (0.0-1.0); MONOCYTES % (AUTO) 3 % (0-12); NEUTROPHILS % (AUTO) 92 % (42-75); PLATELET COUNT 273 10^3/uL (130-400); WHITE BLOOD COUNT 11.9 10^3/uL (4.3-11.0)
[2020-07-26] MEDS: PIPERACILLIN/TAZO 4.5 GM/NS 100 ML IV SCH ×2 (06:15)
[2020-07-26 06:21] LABS: CHLORIDE 104 MMOL/L (98-107); POTASSIUM 4.2 MMOL/L (3.6-5.0); SODIUM 136 MMOL/L (135-145)
[2020-07-26 06:22] LABS: CALCIUM 8.9 MG/DL (8.5-10.1)
[2020-07-26 06:23] LABS: GLUCOSE 133 MG/DL (70-105); TOTAL PROTEIN 7.2 GM/DL (6.4-8.2)
[2020-07-26 06:25] LABS: BILIRUBIN,TOTAL 0.7 MG/DL (0.1-1.0); CARBON DIOXIDE 22 MMOL/L (21-32)
[2020-07-26 06:27] LABS: ALKALINE PHOSPHATASE 63 U/L (40-136); CREATININE SERUM 1.09 MG/DL (0.60-1.30); GFR ESTIMATED > 60
[2020-07-26 06:28] LABS: BUN/CREATININE RATIO 9
[2020-07-26 06:30] LABS: ALANINE AMINOTRANSFERASE 53 U/L (0-55)
--- NOTE | 2020-07-26 07:29 | Progress Note - Surgery ---
DEMARCOTREV HALL MED STUDENT 07/26/20 0729: Subjective Date Seen by a Provider: Jul 26, 2020 Time Seen by a Provider: 07:22 Subjective/Events-last exam Says the pain is better today than it was when he arrived yesterday, rates his pain as 4/10 and states the pain is more located to the incision sites. Is receiving pain medication and states that he feels it is adequately covering his pain. Is tolerating eating without any discomfort. Was able to urinate with discomfort but hasn't had a bowel movement yet. Slept about 4 hours last night, says he tried to stay up so that he could talk to his son before he went off to school. When he fell asleep he states it was restful. Focused Exam Respiratory: Chest Non Tender, Lungs Clear, Normal Breath Sounds, No Accessory Muscle Use, No Respiratory Distress Cardiovascular: Regular Rate, Rhythm, No Edema, No Gallop, No JVD, No Murmur, Normal Peripheral Pulses Peripheral Pulses: 2+ Dorsalis Pedis (R), 2+ Left Dors-Pedis (L), 2+ Radial Pu lses (R), 2+ Radial Pulses (L) Skin: normal color, warm/dry Objective Exam Vital Signs Date Time Temp Pulse Resp B/P (MAP) Pulse Ox O2 Delivery O2 Flow Rate FiO2 07/26/20 03:42 36.9 68 20 107/57 (74) 96 Room Air 07/26/20 00:55 36.5 75 18 119/70 (86) 96 Room Air 07/25/20 21:55 Room Air 07/25/20 21:55 36.5 20 132/81 (98) 95 Room Air 07/25/20 21:50 20 136/84 (101) 96 Room Air 07/25/20 21:41 Room Air 07/25/20 21:40 18 139/88 (105) 97 Room Air 07/25/20 21:33 Room Air 07/25/20 21:30 18 136/88 (104) 100 OxyMask 3 07/25/20 21:28 OxyMask 3 07/25/20 21:25 OxyMask 6 07/25/20 21:20 18 155/81 (105) 100 OxyMask 6 07/25/20 21:20 OxyMask 6 07/25/20 21:16 18 159/87 (111) 100 OxyMask 6 07/25/20 21:07 OxyMask 6 07/25/20 21:07 36.4 20 128/72 (90) 99 OxyMask 6 07/25/20 19:45 36.8 58 18 107/69 (82) 97 Room Air 07/25/20 19:40 Room Air 07/25/20 18:30 Room Air 07/25/20 16:03 37.3 83 16 129/93 100 Room Air 07/25/20 14:01 37.3 81 18 131/87 (102) 98 Room Air I & O 07/26/20 07:00 Intake Total 2600 ml Output Total 700 ml Balance 1900 ml Capillary Refill : Less Than 3 Seconds General Appearance: No Apparent Distress, WD/WN; No Anxious HEENT: PERRL/EOMI, Normal ENT Inspection, Pharynx Normal; No Scleral Icterus (L), No Scleral Icterus (R) Neck: Full Range of Motion, Normal Inspection, Non Tender, Supple Respiratory: Chest Non Tender, Lungs Clear, Normal Breath Sounds, No Accessory Muscle Use, No Respiratory Distress Cardiovascular: Regular Rate, Rhythm, No Edema, No Gallop, No JVD, No Murmur, Normal Peripheral Pulses Peripheral Pulses: 2+ Dorsalis Pedis (R), 2+ Left Dors-Pedis (L), 2+ Radial Pulses (R), 2+ Radial Pulses (L) Gastrointestinal: normal bowel sounds, soft, no pulsatile mass, tenderness Extremity: Normal Capillary Refill, Normal Inspection, Normal Range of Motion, Non Tender Neurologic/Psychiatric: Alert, Oriented x3, No Motor/Sensory Deficits, Normal Mood/Affect Skin: Normal Color, Warm/Dry Lymphatic: No Adenopathy Results Lab Laboratory Tests 07/25/20 13:41: Urine Color YELLOW, Urine Clarity CLEAR, Urine pH 6.0, Urine Specific [place] >=1.030, Urine Protein NEGATIVE, Urine Glucose (UA) NEGATIVE, Urine Ketones NEGATIVE, Urine Nitrite NEGATIVE, Urine Bilirubin NEGATIVE, Urine Urobilinogen NORMAL, Urine Leukocyte Esterase NEGATIVE, Urine RBC (Auto) TRACE-I, Urine RBC RARE, Urine WBC NONE, Urine Crystals NONE, Urine Bacteria NEGATIVE, Urine Casts NONE, Urine Mucus SMALLH, Urine Culture Indicated NO 07/25/20 13:45: White Blood Count 16.5H, Red Blood Count 5.28, Hemoglobin 15.6, Hematocrit 45, Mean Corpuscular Volume 85, Mean Corpuscular Hemoglobin 30, Mean Corpuscular Hemoglobin Concent 35, Red Cell Distribution Width 12.5, Platelet Count 341, Mean Platelet Volume 9.6, Immature Granulocyte % (Auto) 0, Neutrophils (%) (Auto) 82H, Lymphocytes (%) (Auto) 10L, Monocytes (%) (Auto) 6, Eosinophils (%) (Auto) 1, Basophils (%) (Auto) 0, Neutrophils # (Auto) 13.5H, Lymphocytes # (Auto) 1.7, Monocytes # (Auto) 1.1H, Eosinophils # (Auto) 0.2, Basophils # (Auto) 0.0, Immature Granulocyte # (Auto) 0.1, Neutrophils % (Manual) 79, Lymphocytes % (Manual) 11, Monocytes % (Manual) 5, Eosinophils % (Manual) 1, Band Neutrophils 4, Blood Morphology Comment NORMAL, Sodium Level 140, Potassium Level 3.9, Chloride Level 104, Carbon Dioxide Level 24, Anion Gap 12, Blood Urea Nitrogen 10, Creatinine 0.95, Estimat Glomerular Filtration Rate > 60, BUN/Creatinine Ratio 11, Glucose Level 128H, Calcium Level 10.0, Corrected Calcium , Total Bilirubin 0.4, Aspartate Amino Transf (AST/SGOT) 37H, Alanine Aminotransferase (ALT/SGPT) 61H, Alkaline Phosphatase 83, Total Protein 8.2, Albumin 4.6H, Lipase 25 07/25/20 20:10: 07/26/20 05:21: White Blood Count 11.9H, Red Blood Count 4.58, Hemoglobin 13.4, Hematocrit 40, Mean Corpuscular Volume 88, Mean Corpuscular Hemoglobin 29, Mean Corpuscular Hemoglobin Concent 33, Red Cell Distribution Width 12.4, Platelet Count 273, Mean Platelet Volume 10.3, Immature Granulocyte % (Auto) 0, Neutrophils (%) (Auto) 92H, Lymphocytes (%) (Auto) 4L, Monocytes (%) (Auto) 3, Eosinophils (%) (Auto) 0, Basophils (%) (Auto) 0, Neutrophils # (Auto) 11.0H, Lymphocytes # (Auto) 0.5L, Monocytes # (Auto) 0.4, Eosinophils # (Auto) 0.0, Basophils # (Auto) 0.0, Immature Granulocyte # (Auto) 0.0, Sodium Level 136, Potassium Level 4.2, Chloride Level 104, Carbon Dioxide Level 22, Anion Gap 10, Blood Urea Nitrogen 10, Creatinine 1.09, Estimat Glomerular Filtration Rate > 60, BUN/Creatinine Ratio 9, Glucose Level 133H, Calcium Level 8.9, Corrected Calcium 8.9, Total Bilirubin 0.7, Aspartate Amino Transf (AST/SGOT) 27, Alanine Aminotransferase (ALT/SGPT) 53, Alkaline Phosphatase 63, Total Protein 7.2, Albumin 4.0 Assessment/Plan Assessment/Plan Assessment/Plan ASSESSMENT Post surgical appendectomy Decreased WBC PLAN Discharge home with followup in 2 weeks. Pain/nausea prescription PRN. Clinical Quality Measures Smoking Cessation Counseling: Counseling-Asymptomatic: 3-10 minutes EBEN FERNANDEZ DO 07/26/20 0809: Subjective Subjective/Events-last exam Pain controlled. Incisional pain. Tolerating liquids. Denies n/v fever sweats chills shortness of breath or chest pain. Objective Exam General Appearance: No Apparent Distress HEENT: PERRL/EOMI, Normal ENT Inspection Neck: Full Range of Motion, Non Tender, Supple Respiratory: Chest Non Tender, No Accessory Muscle Use, No Respiratory Distress Cardiovascular: Regular Rate, Rhythm, No JVD Gastrointestinal: soft, tenderness (incisional clean dry intact) Extremity: Normal Capillary Refill, Non Tender Neurologic/Psychiatric: Alert, Oriented x3, No Motor/Sensory Deficits, Normal Mood/Affect Skin: Normal Color, Warm/Dry Lymphatic: No Adenopathy Assessment/Plan Assessment/Plan Assessment/Plan rlq abd pain appendicolith appendicitis s/p laparoscopic appendectomy patient doing well. advance diet oral pain control dc home today Final Diagnosis rlq abd pain appendicolith appendicitis s/p laparoscopic appendectomy Supervisory-Addendum Brief Verification & Attestation Participated in pt care: history, MDM, physical Personally performed: exam, history, MDM, supervision of care Care discussed with: Medical Student Procedures: n/a Results interpretation: Verified all documentation Verification and Attestation of Medical Student E/M Service A medical student performed and documented this service in my presence. I reviewed and verified all information documented by the medical student and made modifications to such information, when appropriate. I personally performed the physical exam and medical decision making. Eben Fernandez, Jul 26, 2020,08:09 TREV PAL MED STUDENT Jul 26, 2020 07:29 EBEN FERNANDEZ DO Jul 26, 2020 08:09
--- NOTE | 2020-07-26 07:36 | Anesthesia-General Post-Op ---
General Patient Condition Mental Status/LOC: Same as Preop Cardiovascular: Satisfactory Nausea/Vomiting: Absent Respiratory: Satisfactory Pain: Controlled Complications: Absent Post Op Complications Complications None Follow Up Care/Instructions Patient Instructions None needed. Anesthesia/Patient Condition Patient Condition Patient is doing well, no complaints, stable vital signs, no apparent adverse anesthesia problems. No complications reported per nursing. PHILLY HERNANDEZ CRNA Jul 26, 2020 07:36
[2020-07-26] MEDS: PANTOPRAZOLE 40 MG (PROTONIX) VIAL IV SCH (07:46)
[2020-07-26 08:00] VITALS: BP 111/66
== END 2020-07-26 10:35 | disposition home or self-care (01) ==
LOC: EDUNIT# 13:36 → ER FS 13:39 → 4TH 17:46
PROVIDERS: ADMIT Surgery; ATTEND Surgery
DX: K35.80 Unspecified acute appendicitis (principal); K21.9 Gastro-esophageal reflux disease without esophagitis; F17.210 Nicotine dependence, cigarettes, uncomplicated; Z79.899 Other long term (current) drug therapy
CPT/HCPCS: 36415; 74176; 80053; 81000; 83690; 85007; 85025; 85027; 87635; 88304; 96374; 96375

== ENCOUNTER 2022-01-29 12:30 | Emergency (ER) | payer MEDICAID, OTHER ==
[~2022-01-29] VITALS: Ht 190 cm; Wt 105.0 kg
[~2022-01-29 12:30] MED LIST changes: +ACHD5005 PO; +DICY20TA PO; -DICY20TA10 PO; +DOCU-143 PO
[2022-01-29] MEDS ORDERED: fentaNYL INJ 100 MCG/2 ML AMP ONE (12:45)
--- NOTE | 2022-01-29 12:57 | ED Upper Extremity ---
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 On scene a dressing was placed on his fingers. He is having tremendous amount of pain from the distal tips of his fingertips. He is not up-to-date on his vaccination. He has had his appendix out but does not have any other significant medical history or follow with a doctor routinely. He does have a primary care provider at [facility] as necessary Allergies and Home Medications Allergies Coded Allergies: No Known Drug Allergies (Unverified , 07/25/19) Patient Home Medication List Home Medication List Reviewed: Yes Azithromycin (Zithromax) 250 Mg Tablet, 250 MG PO UD Prescribed by: RUFUS KILLIAN on 07/25/192301 Azithromycin (Azithromycin) 250 Mg Tablet, 250 MG PO DAILY Prescribed by: AZUCENA HENRY on 06/05/201850 Benzonatate (Tessalon Perles) 100 Mg Capsule, 100 MG PO TID Prescribed by: RUFUS KILLIAN on 10/06/19 224 Dicyclomine HCl (Dicyclomine HCl) 20 Mg Tablet, 20 MG PO Q6H PRN for abdominal pain/cramping Prescribed by: AZUCENA HENRY on 06/05/20 185 Docusate Sodium (Colace) 100 Mg Capsule, 100 MG PO BID Prescribed by: HONEY ESQUEDA on 07/25/202056 Famotidine (Pepcid) 20 Mg Tablet, 20 MG PO BID Prescribed by: LISANDRA ALVARADO on 10/05/19 0001 Hydrocodone Bit/Acetaminophen (HYDROcodone/APAP 5 MG/325 MG TAB) 1 Tab Tab, 1 EA PO Q4H PRN for PAIN-MODERATE (5-7) Prescribed by: HONEY ESQUEDA on 07/25/202056 Metoclopramide HCl (Metoclopramide HCl) 10 Mg Tablet, 10 MG PO Q6H PRN for NAUSEA/VOMITING Prescribed by: AZUCENA HENRY on 06/05/20 185 Ondansetron (Ondansetron Odt) 4 Mg Tab.rapdis, 4 MG PO Q6H PRN for NAUSEA/VOMITING Prescribed by: WILLARD TILLEY on 02/23/20 5671 Review of Systems Constitutional: No chills, No diaphoresis, No fever EENTM: No ear discharge, No ear pain Respiratory: No cough, No dyspnea on exertion Cardiovascular: No chest pain, No palpitations Gastrointestinal: No abdominal pain, No constipation, No diarrhea Genitourinary: No discharge, No dysuria Musculoskeletal: see HPI; No back pain; joint pain Skin: see HPI All Other Systems Reviewed Negative Unless Noted: Yes Past Rnvypmm-Ewxdhm-Swmelk Hx Patient Social History Tobacco Use?: No Use of E-Cig and/or Vaping dev: Yes E-Cig or Vaping type used: Nicotine Substance use?: No Alcohol Use?: No Pt feels they are or have been: No Seasonal Allergies Seasonal Allergies: No Past Medical History Surgery/Hospitalization HX: APPENDECTOMY Surgeries: Yes Respiratory: No Cardiac: No Valvular Heart Disease Neurological: No Sexually Transmitted Disease: No HIV/AIDS: No Genitourinary: No Gastrointestinal: No Gastroesophageal Reflux Musculoskeletal: No Endocrine: No HEENT: No Cancer: No Psychosocial: No Integumentary: No Blood Disorders: No Family Medical History No Pertinent Family Hx Physical Exam Vital Signs Vital Signs - First Documented 01/29/22 12:40 Temp 36.1 Pulse 68 Resp 18 B/P (MAP) 142/68 (92) Pulse Ox 100 O2 Delivery Room Air Capillary Refill : Height, Weight, BMI Height: '" Weight: lbs. oz. kg; 32.40 BMI Method: General Appearance: WD/WN, moderate distress HEENT: PERRL/EOMI, pharynx normal Neck: full range of motion, normal inspection Cardiovascular: normal peripheral pulses, regular rate, rhythm Respiratory: no respiratory distress, no accessory muscle use Gastrointestinal: normal bowel sounds, non tender Shoulder: normal inspection, non-tender, no evidence of injury Wrist: Yes normal inspection, Yes non-tender, Yes no evidence of injury, Yes normal ROM Hand: nail injury (Bilateral second digit distal phalanx crush injury with discoloration and a small amount of hemostatic bleeding and blunt laceration involving the nail bilaterally.), swelling Neurologic/Psychiatric: alert, oriented x 3 Procedures/Interventions Wound Location: Upper Extremities Other Wound Location Distal phalanx of the second digit of the left hand. Wound Length (cm): 1 Wound's Depth, Shape: irregular, nail-avulsed Wound Explored: no foreign body removed Irrigated w/ Saline (ccs): 250 Betadine Prep?: Yes (Chlorhexidine and sterile) Anesthesia: 1% Lidocaine Volume Anesthetic (ccs): 4 Wound Debrided: minimal Suture: Ethlion Suture Size: 4-0 Number of Sutures: 2 Layer Closure?: 1 Number Deep Layer Sutures: 0 Sterile Dressing Applied?: Yes Progress The proximal base of the nail is avulsed out. The wound was contaminated. We cleaned as best we could flushed soaked and then reapproximated the nail base with 2 simple interrupted sutures. Digital block using the usual fashion assured good anesthesia. Patient tolerated procedure well. We did not tightly close or seal the wound for concern of contamination and infection risk. Range of motion was intact of the distal phalanx after procedure. Wound Location: Upper Extremities Other Wound Location Distal phalanx of the second digit of the right hand. Wound Length (cm): 1 Wound's Depth, Shape: irregular, nail-avulsed Wound Explored: no foreign body removed Irrigated w/ Saline (ccs): 250 Betadine Prep?: Yes (Chlorhexidine and sterile saline) Anesthesia: 1% Lidocaine Volume Anesthetic (ccs): 5 Wound Debrided: minimal Suture: Ethlion Suture Size: 4-0 Number of Sutures: 2 Layer Closure?: 1 Number Deep Layer Sutures: 0 Sterile Dressing Applied?: Yes Progress The proximal base of the nail is avulsed out. The wound was contaminated. We cleaned as best we could flushed soaked and then reapproximated the nail base with 2 simple interrupted sutures. Digital block using the usual fashion assured good anesthesia. Patient tolerated procedure well. We did not tightly close or seal the wound for concern of contamination and infection risk. Range of motion was intact of the distal phalanx after procedure. Progress/Results/Core Measures Results/Orders My Orders Orders - ANAYELI SHELTON Fentanyl Inj (Sublimaze Injection) (01/29/22 12:45) Fentanyl Inj (Sublimaze Injection) (01/29/22 13:00) Dipht,Pertuss(Acell),Tet Adult (Boostrix (01/29/22 13:00) Finger Bilateral (01/29/22 12:51) Fentanyl Inj (Sublimaze Injection) (01/29/22 13:45) Medications Given in ED Current Medications Medications Dose Ordered Sig/Kelly Route Start Time Stop Time Status Last Admin Dose Admin Diphtheria/ Tetanus/Acell Pertussis 0.5 ml ONCE ONCE IM 01/29/22 13:00 01/29/22 13:01 DC 01/29/22 13:02 0.5 ML Fentanyl Citrate 50 mcg ONCE ONCE IVP 01/29/22 13:00 01/29/22 13:01 DC 01/29/22 13:02 50 MCG Fentanyl Citrate 50 mcg ONCE ONCE IVP 01/29/22 13:45 01/29/22 13:46 DC 01/29/22 13:36 50 MCG Vital Signs/I&O 01/29/22 12:40 Temp 36.1 Pulse 68 Resp 18 B/P (MAP) 142/68 (92) Pulse Ox 100 O2 Delivery Room Air Progress Progress Note : Time: 12:55 Progress Note Establish an IV and gave him 50 mcg of fentanyl as well as did a digital block on bilateral fingers. We will get x-ray of his fingers. Tdap vaccine given. Diagnostic Imaging Diagonstic Imaging: Xray Plain Films/CT/US/NM/MRI: hand Comments [facility], [place] NAME: WILI SORIANO [facility] REC#: [id number] PT STATUS: REG ER : 1990 PHYSICIAN: ANAYELI SHELTON MD ADMIT DATE: 01/29/22/ER FS Draft Date of Exam:01/29/22 FINGER BILATERAL HISTORY: Crush injury of the left and right second fingers. TECHNIQUE: Frontal view of the bilateral hands. Three coned-down views of the index fingers bilaterally. COMPARISON: None. FINDINGS: The right hand demonstrates a markedly comminuted, anteriorly displaced fracture at the base of the distal phalanx with no extension to the articular surface. There is surrounding soft tissue swelling. There is an overlying dressing. No other fractures are seen in the right hand. A metal ring is seen on fourth finger. The left hand demonstrates a markedly comminuted, mildly displaced fracture of the right second finger distal phalangeal shaft and base with no extension to the articular surface seen. There is surrounding soft tissue swelling and an overlying dressing. No other fractures are seen in the right hand. IMPRESSION: 1. Comminuted extra-articular fractures of the bilateral index finger distal phalanges. Dictated on workstation # [id number] Dict: 01/29/22 1309 Trans: 01/29/22 1318 [id number] [id number] Interpreted by: SUSANNAH MCDOWELL MD Electronically signed by: Reviewed: Reviewed by Me Departure Impression Primary Impression: Crushing injury of finger of left hand Additional Impressions: Crushing injury of finger of right hand Finger fracture, left Qualified Codes: S62.661A - Nondisplaced fracture of distal phalanx of left index finger, initial encounter for closed fracture Finger fracture, right Qualified Codes: S62.660A - Nondisplaced fracture of distal phalanx of right index finger, initial encounter for closed fracture Disposition: 01 HOME, SELF-CARE Condition: Stable Departure-Patient Inst. Decision time for Depature: 14:00 Referrals: ZHEN MANTILLA APRN (PCP) Primary Care Physician [facility] (Family) Primary Care Physician KRISTINE VITALE DO Patient Instructions: Crush Injury (DC), Finger Fracture ED Add. Discharge Instructions: Keep the wounds clean with regular soap and water. You may dress them with triple antibiotic ointment or Vaseline and change the dressing at least daily or more frequently if it becomes soiled. Keep your fingers elevated above the level of your heart to reduce swelling and pain. The numbing medicine will wear off in about half an hour. Ibuprofen 800 mg every 8 hours as needed for pain. Tylenol 650 mg every 8 hours needed for pain. Hydrocodone 1 or 2 tablets every 4 hours as necessary to remain functional. Pain will improve over the next days to week. Cephalexin 500 mg 4 times a day for the next week to prevent infection. I suggest to use probiotics [id number] twice a week to prevent diarrhea caused by the antibiotics. I suggest to use MiraLAX and/or Colace at least once a day to counteract the constipation caused by hydrocodone. Hydrocodone will cause drowsiness and should not be mixed with long road trips, operating heavy machinery or alcohol. Make a follow-up appointment with Dr. Vitale, hand surgeon in 5 to 7 days for reexamination of your fingers to make sure that the tendons and ligaments are not requiring any surgery. If you start to experience symptoms of an infection such as increased redness going up your hand, fever above 100.3, intractable nausea and vomiting or other worrisome symptoms then please return to the nearest ER for reevaluation. You may also follow-up with your primary care provider for help managing your symptoms. All discharge instructions reviewed with patient and/or family. Voiced understanding. Scripts Cephalexin (Cephalexin) 500 Mg Tablet 500 MG PO QID for 7 Days, #28 TAB 0 Refills Prov: ANAYELI SHELTON 01/29/22 Hydrocodone/Acetaminophen (Hydrocodone-Acetamin 5-325 mg) 5 Mg-325 Mg Tablet 1-2 TAB PO Q4H PRN for PAIN-MODERATE (5-7), #25 TAB 0 Refills Prov: ANAYELI SHELTON 01/29/22 Work/School Note: Work Release Form Date Seen in the Emergency Department: Jan 29, 2022 Return to Work: Feb 04, 2022 Restrictions: Need Release from Doctor Other Restrictions Listed Below: Dressings must remain clean and dry. Restrictions: Not to use index fingers until 02/11/2022. Copy Copies To 1: KRISTINE VITALE DO ANAYELI SHELTON Jan 29, 2022 12:57
[2022-01-29] MEDS ORDERED: TETANUS,DIPTH,PERTUSS P/F (BOOSTRIX) 0.5 ML VIAL IM ONE (13:00)
[2022-01-29] MEDS ORDERED: fentaNYL INJ 100 MCG/2 ML AMP IVP ONE ×2 (13:00→13:45)
--- NOTE | 2022-01-29 13:18 | Diagnostic Imaging Report ---
HISTORY: Crush injury of the left and right second fingers. TECHNIQUE: Frontal view of the bilateral hands. Three coned-down views of the index fingers bilaterally. COMPARISON: None. FINDINGS: The right hand demonstrates a markedly comminuted, anteriorly displaced fracture at the base of the distal phalanx with no extension to the articular surface. There is surrounding soft tissue swelling. There is an overlying dressing. No other fractures are seen in the right hand. A metal ring is seen on fourth finger. The left hand demonstrates a markedly comminuted, mildly displaced fracture of the right second finger distal phalangeal shaft and base with no extension to the articular surface seen. There is surrounding soft tissue swelling and an overlying dressing. No other fractures are seen in the right hand. IMPRESSION: 1. Comminuted extra-articular fractures of the bilateral index finger distal phalanges. Dictated by: Dictated on workstation # [id number]
[2022-01-29] MEDS ORDERED: CEPH500T PO (14:07)
[2022-01-29] MEDS ORDERED: ACHD5005 PO (14:07)
[2022-01-29 14:23] VITALS: BP 142/68
== END 2022-01-29 14:20 | disposition home or self-care (01) ==
LOC: EDUNIT# 12:30 → ER FS 12:32
DX: S62.631A Displaced fracture of distal phalanx of left index finger, initial encounter for closed fracture (principal); S62.632A Displaced fracture of distal phalanx of right middle finger, initial encounter for closed fracture; Z28.310 Unvaccinated for COVID-19; Z23 Encounter for immunization; W23.1XXA Caught, crushed, jammed, or pinched between stationary objects, initial encounter; Y99.0 Civilian activity done for income or pay; Y92.59 Other trade areas as the place of occurrence of the external cause
CPT/HCPCS: 12031; 64450; 73140; 99284; A6223; 90715